=== PATIENT | male | born 2000 | race Two or more races ===

== ENCOUNTER 2024-01-24 07:41 | Emergency (ER) | payer MEDICAID, SELFPAY ==
[2024-01-24 07:49] VITALS: BP 136/89; PULSE 77; RESP 20; TEMP 36.8; O2SAT 98; BMI 38.4
--- NOTE | 2024-01-24 08:03 | XR_ITS ---
Examination: CT abdomen and pelvis without contrast. Coronal 3-D reconstructions. Sagittal 2-D reconstructions. Date and time of exam:January 24, 2024 0901 hours Comparison July 04, 2019 INDICATIONS: Bilateral flank pain and hematuria beginning this morning CTDI: vol (mGy): 17.4 DLP: (mGycm): 1277 Technique: Axial images of the abdomen have been obtained, 3 mm slice thickness Intravenous contrast material has not been administered. Low dose protocols were performed. One or more of the following dose reduction techniques were used; automated exposure control, adjustment of the mA and/or KV according to patient size, use of iterative reconstruction technique. Findings: No focal liver or splenic lesions No gallstones No pancreatic or adrenal mass Minimal right hydronephrosis secondary to 6 mm right ureteropelvic junction calculus Aorta normal size No bowel obstruction Normal appendix No diverticulitis No bladder calculi IMPRESSION: Minimal right hydronephrosis secondary to 6 mm right ureteropelvic junction calculus
[2024-01-24] MEDS: ONDANSETRON INJ 2 MG/ML INJ 2 ML 4 MG IV (08:24)
[2024-01-24] MEDS: KETOROLAC INJ 30 MG/ML VIAL IVP (08:24)
[2024-01-24] MEDS: SODIUM CHLORIDE 0.9% 1000 ML 1,000 ML 999 ML IV (08:25)
[2024-01-24 08:35] LABS: Basophils # (Auto) 0.1 Thou/mm3 (0.0-0.2); Basophils % (Auto) 1 % (0-2.5); Eosinophils # (Auto) 0.2 Thou/mm3 (0.0-0.5); Eosinophils % (Auto) 2 % (0-10); Hematocrit 41.1 % (41.0-53.0); Hemoglobin 15.1 g/dL (13.5-16.0); Immature Granulocytes % (Auto) 0 % (0-0); Immature Granulocytes Auto 0.01 Thou/mm3 (0.00-0.00); Lymphocytes # (Auto) 2.2 Thou/mm3 (1.0-4.8); Lymphocytes % (Auto) 29 % (10-50); Mean Corpuscular HGB Conc 36.7 g/dl (31.0-37.0); Mean Corpuscular Hemoglobin 30.1 pg (25.0-35.0); Mean Corpuscular Volume 82 fL (80-100); Monocytes % (Auto) 13 % (0-12); Neutrophils # (Auto) 4.1 Thou/mm3 (1.8-7.7); Neutrophils % (Auto) 55 % (37-80); Nucleated Red Blood Cell % 0 /100 WBC (0); Platelet Count 319 Thou/mm3 (140-440); RDW Standard Deviation 35.2 fL (35.1-43.9); Red Blood Count 5.02 Miln/mm3 (4.50-5.90); White Blood Count 7.6 Thou/mm3 (3.8-10.6)
[2024-01-24 08:55] LABS: Alanine Aminotransferase 16 U/L (10-49); Albumin, Serum 5.1 gm/dL (3.5-5.0); Albumin/Globulin Ratio 1.8 (1.2-2.2); Alkaline Phosphatase 67 U/L (46-116); Anion Gap 9 (7-16); Aspartate Amino Transferase 14 U/L (0-34); BUN/Creatinine Ratio 13 Ratio (12-20); Blood Urea Nitrogen 10 mg/dL (9-23); Calcium 9.9 mg/dL (8.3-10.6); Calcium (Corrected) 9.9 mg/dL (8.5-10.1); Carbon Dioxide 24.5 mMol/L (20.0-31.0); Chloride 103 mMol/L (98-107); Creatinine (Component) 0.8 mg/dL (0.6-1.3); Estimated Creatinine Clearance 185.1 mL/min (>60); Globulin 2.8 gm/dL (2.3-3.5); Glucose 100 mg/dL (74-106); Lipase 30 U/L (12-53); Osmolality,Calculated 270 (275-295); Potassium 3.9 mMol/L (3.4-5.1); Sodium 136 mMol/L (136-145); Total Protein 7.9 gm/dL (5.7-8.2); eGFR > 60 See Note
[2024-01-24 09:00] LABS: Collection Type, Urine Clean Catch; Squamous Epithelial Cell,Urine 0 /hpf (0-5)
--- NOTE | 2024-01-24 09:15 | PD.EDBACK ---
ED Back Injury Pain RME/HPI General Chief Complaint: Abdominal Pain Stated Complaint: mid abd. pain rad. to back,blood in urine Time Seen by Provider: 01/24/24 07:44 Arrival date/time: 01/24/24 07:41 RME / HPI RME / HPI Narrative: 23 year old male with history of kidney stones presents to the ED for complaint of back and abdominal pain beginning this morning. Reports his pain is located to both sides of his back that radiates around to both sides of his lower abdomen, described as aching pressure in sensation, rating as moderate-severe. Accompanied by vomiting x1 and blood tinged urine this morning. Denies fevers, chills, chest pain, cough, shortness of breath, diarrhea, constipation, or pain with urinating. Related Data Home Medications ?Medication ?Instructions ?Recorded ?Confirmed albuterol sulfate 90 mcg/actuation 2 puff inhalation QDAY 05/11/20 01/24/24 aerosol inhaler Previous Rx's ?Medication ?Instructions ?Recorded cyclobenzaprine 10 mg tablet 10 mg PO TID PRN muscle spasm #20 10/24/20 tabs ibuprofen 800 mg tablet 800 mg PO Q8H PRN pain #30 tabs 10/24/20 albuterol sulfate 90 mcg/actuation 2 puff inhalation Q6H PRN 05/03/23 aerosol inhaler (Ventolin HFA) shortness of breath or wheezing #8.5 grams Allergies Allergy/AdvReac Type Severity Reaction Status Date / Time No Known Allergies Allergy Verified 01/24/24 07:43 Review of Systems Review of Systems Narrative Review of Systems: Constitutional: DENIES; Fevers Eyes: DENIES; Loss of vision Head/Ear/Nose: DENIES; Loss of hearing Throat: DENIES; Dysphagia Cardiovascular: DENIES; Chest pain, dyspnea or syncope Respiratory: DENIES; Shortness of breath Gastrointestinal: SEE HPI +abd pain, vomiting x1 DENIES; Rectal bleeding or melena. Genitourinary: SEE HPI +blood tinged urine DENIES; Dysuria (painful or difficult urination) Musculoskeletal: SEE HPI +back pain DENIES; Arthralgia (pain in a joint),; Skin: DENIES; Rash Neurological: DENIES; Loss of function or movement Psychiatric: DENIES; recent major life stressor, emotional problem, illicit drug use or abuse Endocrinology: DENIES; Weight change Hematologic/Lymphatic: DENIES; Abnormal bruising Allergic/Immunologic: DENIES; Urticaria (hives) Past Medical History Past Medical History CARDIAC: Positive Hypercholesterolemia (STOP TAKING CHOLESTEROL AT 13 YRS OLD) RESPIRATORY: Positive Asthma (TAKES INHALER) GASTROINTESTINAL: Positive Gastrointestinal Disorders, Gastroesophageal Reflux Disease and Obesity MUSCULOSKELETAL: Positive Fractures (RIGHT FOOT HAD CAST) OTHER HISTORY: Positive Hospitalization (HOSP DUE TO FEVER AT [facility]) Family History FAMILY HISTORY: Positive Family Respiratory Disorders (FATHER (ASTHMA)) and Family Surgery (BROTHER,MOTHER) Social History SMOKING STATUS: Current some day smoker SUBSTANCE USE: does not use ED Exam Narrative Physical exam: Physical Exam: General: The vital signs were reviewed. The patient is non-toxic, in no apparent distress and appears healthy with a patent airway, no respiratory distress and has no apparent circulatory problems. Head & Scalp: Normocephalic, atraumatic. Face: Appears normal and is without lesions, deformity. Ears: Left external pinna appears normal. Right external pinna appears normal. Eyes: The sclera is anicteric. No obvious photophobia. The Left and Right Orbit/Lid/Conjunctiva appears normal without swelling, discoloration or injection. Nose: The nose is without deformity, discharge or tenderness; Throat: Appears normal. The mucous membranes are pink and moist without exudates, redness or mass seen. The tongue appears normal. Neck: The neck is supple and no apparent mass or adenopathy. Chest: The chest wall is normal in size and symmetry and has no chest wall tenderness or crepitus. The patient displays normal ventilator effort without retractions, accessory muscle use and has adequate air movement bilaterally with no wheezes and no rales. Cardiovascular: Regular rate and rhythm; No murmurs, rubs, or gallops; Gastrointestinal: The abdomen appears normal. No obvious hernias or mass. The abdomen vague bilateral lumbar discomfort with lower abdominal discomfort otherwise is soft and benign, non-distended, with no pain, no guarding and no rebound tenderness. Bowel sounds are present and normal sounding. No CVA tenderness. Genitourinary: Back/Spine: Extremities/Musculoskeletal/lymphatic: The bilateral upper and lower extremities are warm. There is no evidence of arterial insufficiency. There is no evidence of venous insufficiency/edema. The patient spontaneously moves bilateral upper and lower extremities with no pain and no limitation of movement. There is no apparent, injury or trauma. Skin: The skin is warm, dry and intact. No rashes. No petechia. No purpura. No abnormal bruising. The color is appropriate with no cyanosis. Mental status/Psychiatric: Mental status is appropriate for age. The patient has no apparent delusions, visual hallucinations, no apparent audible hallucinations. The patient has no apparent suicidal thoughts/ideation and no apparent homicidal thoughts/ideation. Neurological: The patient is awake, alert, interactive, cordial, cooperative and is oriented to name and situation. The patient follows commands and answers historical question with no impairment. There is no visual disturbance apparent. The pupils are equal and reactive bilaterally with normal eye movements and no diplopia The bilateral upper and lower extremities have normal strength, normal range of motion and normal functioning. The gait, station and balance appear to be baseline with no acute change Course Quality Measures none Orders Category Date Time Status Insert IV NOW Care 01/24/24 08:[address] abdomen pelvis wo con Stat Exams 01/24/24 08:03 Completed US abdomen limited Stat Exams 01/24/24 09:22 Completed CBC Stat Lab 01/24/24 08:21 Completed Comprehensive Metabolic Panel Stat Lab 01/24/24 08:21 Completed Lipase Stat Lab 01/24/24 08:21 Completed UA, C/S IF [Urinalysis, C/S if Indicated] Stat Lab 01/24/24 08:51 Completed Ketorolac Inj [Toradol Inj] Med 01/24/24 08:03 Discontinued 30 mg IVP X1 ONE Ondansetron Inj [Zofran Inj] Med 01/24/24 08:03 Discontinued 4 mg IV X1 ONE Sodium Chloride 0.9% 1000 ml [Ns] 1,000 ml Med 01/24/24 08:03 Discontinued IV 999 mls/hr Vital Signs Vital signs: Vital Signs Temperature 98.3 F 01/24/24 07:49 Pulse Rate 77 01/24/24 07:49 Respiratory Rate 20 01/24/24 07:49 Blood Pressure 136/89 H 01/24/24 07:49 Pulse Oximetry (%) 98 01/24/24 07:49 Oxygen Delivery Method Room Air 01/24/24 07:49 Pulse ox is 98% on room air which is adequate. Back Pain / Injury MDM Narrative MDM Narrative:: Linda Harrington am scribing for and in the presence of Dr. Smith. Patient presents with very vague bilateral lumbar discomfort and bilateral lower abdominal discomfort and does not describe any localizing symptoms here. Does have a history of previous kidney stone years ago. CT scan came back with a 6 mm right UV with some right mild hydronephrosis. Otherwise CT scan is unremarkable. Lab studies have a white count of 7.6 hemoglobin of 15.1 kidney function BUN 10 creatinine of 0.8 electrolytes are within normal limits transaminases are within normal limits. Lipase was 30 urinalysis had 47 red blood cells most likely secondary to the renal stone. Reevaluation 16 hours patient is very comfortable he knows to strain his urine and follow-up with his doctor return if getting worse. Patient data External records reviewed:: [facility] previous records (I reviewed ED visit on 05/31/2023) Clinical information provided by:: patient Social determinants that could affect healthcare access:: substance use (Marijuana ) Patient has the following chronic illnesses:: Kidney stone How is presenting disease/condition affected by chronic disease/condition?: uneffected by Evaluation data The following diagnostics were reviewed and interpreted by me:: lab results and radiology exam(s) Lab and/or radiology exams considered but not ordered:: None Interpretation Summary: Ordering Physician: Alyson KIRKLAND)Rudolph NP Date of Service: 01/24/24 Procedure(s): CT abdomen pelvis wo [facility] Accession Number(s): [id number] cc: Alyson KIRKLAND),Rudolph AMBROSE; Helio Glover MD; NO PRIMARY/FAMILY,PHYSICIAN~ Examination: CT abdomen and pelvis without contrast. Coronal 3-D reconstructions. Sagittal 2-D reconstructions. Date and time of exam:January 24, 2024 0901 hours Comparison July 04, 2019 INDICATIONS: Bilateral flank pain and hematuria beginning this morning CTDI: vol (mGy): 17.4 DLP: (mGycm): 1277 Technique: Axial images of the abdomen have been obtained, 3 mm slice thickness Intravenous contrast material has not been administered. Low dose protocols were performed. One or more of the following dose reduction techniques were used; automated exposure control, adjustment of the mA and/or KV according to patient size, use of iterative reconstruction technique. Findings: No focal liver or splenic lesions No gallstones No pancreatic or adrenal mass Minimal right hydronephrosis secondary to 6 mm right ureteropelvic junction calculus Aorta normal size No bowel obstruction Normal appendix No diverticulitis No bladder calculi IMPRESSION: Minimal right hydronephrosis secondary to 6 mm right ureteropelvic junction calculus Dictated By: Helio Glover MD Signed By: <Electronically signed by Helio Glover MD in OV> 01/24/24 0957 Ordering Physician: Buster Smith MD Date of Service: 01/24/24 Procedure(s): US abdomen limited Accession Number(s): [id number] cc: Buster Smith MD; Helio Glover MD; NO PRIMARY/FAMILY,PHYSICIAN~ Examination: Abdomen sonogram, Limited Date and time of exam: January 24, 2024 1137 hours INDICATIONS: Onset epigastric pain today Technique: Real-time mason scale transabdominal sonographic images of the upper abdomen obtained. Findings: Negative for gallstones Gallbladder wall 0.3 cm no edema Common bile duct 0.3 cm Pancreatic head 3.4 cm Liver 15.6 cm fatty infiltration no focal liver lesions Normal hepatopedal portal venous flow Patent IVC IMPRESSION: Normal gallbladder Normal common bile duct Fatty liver Dictated By: Helio Glover MD Signed By: <Electronically signed by Helio Glover MD in OV> 01/24/24 1234 Medications / Prescriptions Medications or Prescriptions considered but not ordered:: See above Medication administrations:: Medication Administration History Discontinued Medications Sodium Chloride (Ns) 1,000 mls @ 999 mls/hr IV .Q1H1M ONE Stop: 01/24/24 09:03 Last Infusion: 01/24/24 09:49 Dose: Infused Documented By: Admin: 01/24/24 08:25 Dose: 999 mls/hr Documented By: ZACARIAS Ketorolac Tromethamine (Ketorolac Inj 30 Mg/Ml Vial) 30 mg IVP X1 ONE Stop: 01/24/24 08:04 Last Admin: 01/24/24 08:24 Dose: 30 mg Documented By: ZACARIAS Ondansetron HCl (Ondansetron Inj 2 Mg/Ml Inj 2 Ml) 4 mg IV X1 ONE; Protocol Stop: 01/24/24 08:04 Last Admin: 01/24/24 08:24 Dose: 4 mg Documented By: ZACARIAS See above Consultations Consultation(s) initiated? (list below): No Diagnosis Differential diagnosis back pain/injury: renal colic, pyelonephritis and other (Kidney stone, cholelithiasis ) Most likely diagnosis given after review of the tests above:: Kidney stone Admission Indicated Admission indicated?: not indicated Admission Request Was there a request for admission?: No Disposition Plan Disposition Plan: Discharge Discharge Attestation Discharge Attestation: The patient and all family members were given an opportunity to ask questions and understood the discharge instructions. Discharge instructions specifically effects, indications for sooner follow up or return to the emergency department, and the expected course of current diagnosis. Patient condition: Stable Discharge Plan Plan Patient Disposition: HOME (Self Care) Prescriptions/Referrals Prescriptions/Med Rec: No Action cyclobenzaprine 10 mg tablet 10 mg PO TID PRN (Reason: muscle spasm) Qty: 20 0RF ibuprofen 800 mg tablet 800 mg PO Q8H PRN (Reason: pain) Qty: 30 0RF albuterol sulfate 90 mcg/actuation Hfa Aerosol Inhaler 2 puff INHALATION QDAY albuterol sulfate [Ventolin HFA] 90 mcg/actuation HFA aerosol inhaler 2 puff inhalation Q6H PRN (Reason: shortness of breath or wheezing) Qty: 8.5 0RF Referrals: No Primary/Family,Physician [Primary Care Provider] - In 1 week Problem List Clinical Impression: Calculus of distal right ureter, Hydronephrosis, right Patient/Caregiver Discharge Instructions Additional Instructions: Strain your urine as we discussed. Follow-up with your doctor in 2 days for recheck return if getting worse. You can use ibuprofen for pain. Make sure you are drinking plenty of clear liquids to prevent formation of further stones. If you are getting fever or increasing pain return for reevaluation Print Language: [place] Stand Alone Forms: [employer] Award Info., Patient Portal Info Letter
--- NOTE | 2024-01-24 09:22 | XR_ITS ---
Examination: Abdomen sonogram, Limited Date and time of exam: January 24, 2024 1137 hours INDICATIONS: Onset epigastric pain today Technique: Real-time mason scale transabdominal sonographic images of the upper abdomen obtained. Findings: Negative for gallstones Gallbladder wall 0.3 cm no edema Common bile duct 0.3 cm Pancreatic head 3.4 cm Liver 15.6 cm fatty infiltration no focal liver lesions Normal hepatopedal portal venous flow Patent IVC IMPRESSION: Normal gallbladder Normal common bile duct Fatty liver
[2024-01-24 09:34] LABS: Bacteria,Urine Rare; Bilirubin,Urine Negative (Negative); Blood,Urine 3+ (Negative); Clarity,Urine Clear (Clear/Hazy); Color,Urine Colorless (Lt Yel-Yel); Culture Indicated,Urine Not Indicated; Glucose, Urine Negative (Negative); Ketones,Urine Negative (Negative); Leukocyte Esterase,Urine Negative (Negative); Nitrite,Urine Negative (Negative); Protein,Urine Trace (Neg - Trace); RBC,Urine 47 /hpf (0-3); Specific Gravity,Urine 1.005 (1.001-1.035); Transitional Epi Cells,Urine < 1 /hpf (0-5); Urobilinogen,Urine Negative mg/dL (0.0-1.0); WBC,Urine 1 /hpf (0-5)
[2024-01-24 10:32] VITALS: BP 151/81; PULSE 68; RESP 18; TEMP 36.7; O2SAT 100
[2024-01-24 12:38] VITALS: BP 109/57; PULSE 60; RESP 16; TEMP 36.8; O2SAT 99
[2024-01-24 14:51] VITALS: BP 95/71; PULSE 60; RESP 18; TEMP 37.1; O2SAT 99
[2024-01-24 16:16] VITALS: BP 131/70; PULSE 65; RESP 18; TEMP 37.1; O2SAT 96
== END 2024-01-24 17:01 | disposition home or self-care (01) ==
PROVIDERS: Nurse Practitioner Primary Care; Emergency Provider Emergency Medicine
DX: N13.2 Hydronephrosis with renal and ureteral calculous obstruction (principal); K76.0 Fatty (change of) liver, not elsewhere classified
CPT/HCPCS: 36415; 74176; 76705; 80053; 81001; 83690; 85025; 96361; 96374; 96375; 99284; J1885; J2405; J7030

== ENCOUNTER 2024-01-25 06:32 | Emergency (ER) | payer MEDICAID, SELFPAY ==
[2024-01-25 06:33] VITALS: BMI 34.0
[2024-01-25 06:44] VITALS: BP 137/83; PULSE 70; RESP 19; TEMP 37.4; O2SAT 96
--- NOTE | 2024-01-25 07:02 | PD.EDRME ---
Rapid Medical Screening Exam RME Arrival date/time: 01/25/24 06:32 23-year-old male here with complaints of flank pain history of kidney stone. Denies take any meds prior to ED arrival. Chief Complaint: Abdominal Pain Time Seen by Provider: 01/25/24 06:35 Vital signs: Vital Signs Temperature 99.3 F 01/25/24 06:44 Pulse Rate 70 01/25/24 06:44 Respiratory Rate 19 01/25/24 06:44 Blood Pressure 137/83 H 01/25/24 06:44 Pulse Oximetry (%) 96 01/25/24 06:44 Oxygen Delivery Method Room Air 01/25/24 06:44 Vital signs reviewed by provider: Yes
[2024-01-25] MEDS: KETOROLAC INJ 30 MG/ML VIAL IVP (07:30)
[2024-01-25] MEDS: SODIUM CHLORIDE 0.9% 1000 ML 1,000 ML 999 ML IV (07:30)
[2024-01-25] MEDS: TAMSULOSIN HCL 0.4 MG CAPSULE PO (08:31)
--- NOTE | 2024-01-25 08:33 | PD.EDABDPN ---
ED Abdominal Pain RME/HPI General Chief Complaint: Abdominal Pain Stated complaint: RIGHT FLANK PAIN Time seen by provider: 01/25/24 06:35 Arrival date/time: 01/25/24 06:32 RME / HPI RME / HPI narrative: 01/25/24 06:32 23-year-old male here with complaints of flank pain history of kidney stone. Denies take any meds prior to ED arrival. DR. GUZMAN MAIN ED EVALUATION: 23 year old male with history of kidney stones returns to the ED for complaint of worsening back and abdominal pain that began yesterday. Reports his pain is located most to the right flank and right abdomen, described as pressure in sensation, rating as severe. Accompanied by vomiting blood tinged urine this morning. Denies fevers, chills, chest pain, cough, shortness of breath, diarrhea, constipation, or pain with urinating. Related Data Home Medications ?Medication ?Instructions ?Recorded ?Confirmed albuterol sulfate 90 mcg/actuation 2 puff inhalation QDAY 05/11/20 01/24/24 aerosol inhaler Previous Rx's ?Medication ?Instructions ?Recorded cyclobenzaprine 10 mg tablet 10 mg PO TID PRN muscle spasm #20 10/24/20 tabs ibuprofen 800 mg tablet 800 mg PO Q8H PRN pain #30 tabs 10/24/20 albuterol sulfate 90 mcg/actuation 2 puff inhalation Q6H PRN 05/03/23 aerosol inhaler (Ventolin HFA) shortness of breath or wheezing #8.5 grams Allergies Allergy/AdvReac Type Severity Reaction Status Date / Time No Known Allergies Allergy Verified 01/24/24 07:43 Review of Systems Review of Systems Narrative Review of Systems: Constitutional: DENIES; Fevers Eyes: DENIES; Loss of vision Head/Ear/Nose: DENIES; Loss of hearing Throat: DENIES; Dysphagia Cardiovascular: DENIES; Chest pain, dyspnea or syncope Respiratory: DENIES; Shortness of breath Gastrointestinal: SEE HPI +right flank pain, nausea, vomiting. DENIES; Rectal bleeding or melena. Genitourinary: SEE HPI +blood tinged urine. DENIES; Dysuria (painful or difficult urination) Musculoskeletal: DENIES; Arthralgia (pain in a joint),; Skin: DENIES; Rash Neurological: DENIES; Loss of function or movement Psychiatric: DENIES; recent major life stressor, emotional problem, illicit drug use or abuse Endocrinology: DENIES; Weight change Hematologic/Lymphatic: DENIES; Abnormal bruising Allergic/Immunologic: DENIES; Urticaria (hives) Past Medical History Past Medical History CARDIAC: Positive Hypercholesterolemia RESPIRATORY: Positive Asthma GASTROINTESTINAL: Positive Gastrointestinal Disorders, Gastroesophageal Reflux Disease and Obesity GENITOURINARY: Positive Kidney Stones MUSCULOSKELETAL: Positive Fractures OTHER HISTORY: Positive Hospitalization Family History FAMILY HISTORY: Positive Family Respiratory Disorders and Family Surgery Surgical History OTHER SURGICAL HX: BACK CYST REMOVED Social History SMOKING STATUS: Current every day smoker SUBSTANCE USE: does not use ED Exam Narrative Physical exam: Physical Exam: General: The vital signs were reviewed. On initial arrival patient is uncomfortable was seen upfront and sent to the back as a know this patient from yesterday has a 6 mm stone right UV junction otherwise the patient is non-toxic, in no apparent distress and appears healthy with a patent airway, no respiratory distress and has no apparent circulatory problems. Head & Scalp: Normocephalic, atraumatic. Face: Appears normal and is without lesions, deformity. Ears: Left external pinna appears normal. Right external pinna appears normal. Eyes: The sclera is anicteric. No obvious photophobia. The Left and Right Orbit/Lid/Conjunctiva appears normal without swelling, discoloration or injection. Nose: The nose is without deformity, discharge or tenderness; Throat: Appears normal. The mucous membranes are pink and moist without exudates, redness or mass seen. The tongue appears normal. Neck: The neck is supple and no apparent mass or adenopathy. Chest: The chest wall is normal in size and symmetry and has no chest wall tenderness or crepitus. The patient displays normal ventilator effort without retractions, accessory muscle use and has adequate air movement bilaterally with no wheezes and no rales. Cardiovascular: Regular rate and rhythm; No murmurs, rubs, or gallops; Gastrointestinal: The abdomen appears normal. No obvious hernias or mass. The abdomen is soft and benign, non-distended, with no pain, no guarding and no rebound tenderness. Bowel sounds are present and normal sounding. No CVA tenderness. Genitourinary: Back/Spine: Extremities/Musculoskeletal/lymphatic: The bilateral upper and lower extremities are warm. There is no evidence of arterial insufficiency. There is no evidence of venous insufficiency/edema. The patient spontaneously moves bilateral upper and lower extremities with no pain and no limitation of movement. There is no apparent, injury or trauma. Skin: The skin is warm, dry and intact. No rashes. No petechia. No purpura. No abnormal bruising. The color is appropriate with no cyanosis. Mental status/Psychiatric: Mental status is appropriate for age. The patient has no apparent delusions, visual hallucinations, no apparent audible hallucinations. The patient has no apparent suicidal thoughts/ideation and no apparent homicidal thoughts/ideation. Neurological: The patient is awake, alert, interactive, cordial, cooperative and is oriented to name and situation. The patient follows commands and answers historical question with no impairment. There is no visual disturbance apparent. The pupils are equal and reactive bilaterally with normal eye movements and no diplopia The bilateral upper and lower extremities have normal strength, normal range of motion and normal functioning. The gait, station and balance appear to be baseline with no acute change Course Quality Measures none Orders Category Date Time Status Insert IV NOW Care 01/25/24 07:01 Completed Ketorolac Inj [Toradol Inj] Med 01/25/24 07:01 Discontinued 30 mg IVP X1 ONE Sodium Chloride 0.9% 1000 ml [Ns] 1,000 ml Med 01/25/24 07:02 Discontinued IV 999 mls/hr Tamsulosin HCl [Flomax] Med 01/25/24 07:01 Discontinued 0.4 mg PO X1 ONE Vital Signs Vital signs: Vital Signs Temperature 99.3 F 01/25/24 06:44 Pulse Rate 70 01/25/24 06:44 Respiratory Rate 19 01/25/24 06:44 Blood Pressure 137/83 H 01/25/24 06:44 Pulse Oximetry (%) 96 01/25/24 06:44 Oxygen Delivery Method Room Air 01/25/24 06:44 Pulse ox is 96% on room air which is adequate. Abdominal Pain MDM MDM Narrative MDM Narrative:: Patient returns after he was diagnosed with a 6 mm UVJ stone yesterday as he was having some nausea vomiting and increased pain. He got some medicines we put him in room 8 and we observed him and at 1310 hrs. he is very comfortable smiling walking around has no pain he states he urinated clear on this last urine collection the first 1 was a reddish consistent with hematuria Patient states he felt a funny feeling when he urinated last time he may have passed a stone unfortunately did not strain it here. He is pain-free comfortable ready go home advised to continue strain his urine for couple days return to getting worse. He knows follow-up with the regular doctor if he collects anything so they could do analysis. There is no need to do repeat labs or then because yesterday the diagnosis was cleared he is a young gentleman with no other health problems at this time Patient data External records reviewed:: [facility] previous records (I reviewed ED visit from yesterday ) Clinical information provided by:: patient Social determinants that could affect healthcare access:: substance use (Marijuana ) Patient has the following chronic illnesses:: Kidney stone How is presenting disease/condition affected by chronic disease/condition?: exacerbated by Evaluation data The following diagnostics were reviewed and interpreted by me:: other (specify) (None ) Lab and/or radiology exams considered but not ordered:: None Interpretation Summary: As noted above Medications / Prescriptions Medications or Prescriptions considered but not ordered:: None Medication administrations:: Medication Administration History Discontinued Medications Sodium Chloride (Ns) 1,000 mls @ 999 mls/hr IV .Q1H1M ONE Stop: 01/25/24 08:02 Last Infusion: 01/25/24 08:32 Dose: Infused Documented By: Admin: 01/25/24 07:30 Dose: 999 mls/hr Documented By: ADRIEL Ketorolac Tromethamine (Ketorolac Inj 30 Mg/Ml Vial) 30 mg IVP X1 ONE Stop: 01/25/24 07:02 Last Admin: 01/25/24 07:30 Dose: 30 mg Documented By: ADRIEL Tamsulosin HCl (Tamsulosin Hcl 0.4 Mg Capsule) 0.4 mg PO X1 ONE Stop: 01/25/24 07:02 Last Admin: 01/25/24 08:31 Dose: 0.4 mg Documented By: ADRIEL See above Consultations Consultation(s) initiated? (list below): No Diagnosis Differential diagnosis abdominal pain: abdominal pain, calculus of kidney and other (Pyelonephritis) Most likely diagnosis given after review of the tests above:: right distal ureteral calculus Hematuria Admission Indicated Admission indicated?: not indicated Admission Request Was there a request for admission?: No Disposition Plan Disposition Plan: Discharge Discharge Attestation Discharge Attestation: The patient and all family members were given an opportunity to ask questions and understood the discharge instructions. Discharge instructions specifically effects, indications for sooner follow up or return to the emergency department, and the expected course of current diagnosis. Patient condition: Stable Discharge Plan Plan Patient Disposition: HOME (Self Care) Prescriptions/Referrals Prescriptions/Med Rec: No Action cyclobenzaprine 10 mg tablet 10 mg PO TID PRN (Reason: muscle spasm) Qty: 20 0RF ibuprofen 800 mg tablet 800 mg PO Q8H PRN (Reason: pain) Qty: 30 0RF albuterol sulfate 90 mcg/actuation Hfa Aerosol Inhaler 2 puff INHALATION QDAY albuterol sulfate [Ventolin HFA] 90 mcg/actuation HFA aerosol inhaler 2 puff inhalation Q6H PRN (Reason: shortness of breath or wheezing) Qty: 8.5 0RF Referrals: Lam Brewer MD [Primary Care Provider] - In 1 week Problem List Clinical Impression: Right distal ureteral calculus, Hematuria Patient/Caregiver Discharge Instructions Education Materials: ED Kidney Stone w/ Colic Additional Instructions: As we discussed continue drinking plenty of fluids. Strain your urine and see if you collect the stone. If you do take it your doctor and they can send it for analysis. Return if getting worse in any way as we discussed. Print Language: Polish Stand Alone Forms: Marina Award Info., Patient Portal Info Letter
[2024-01-25 08:34] VITALS: BP 131/57; PULSE 64; RESP 18; TEMP 36.9; O2SAT 96
[2024-01-25 12:35] VITALS: BP 162/90; PULSE 74; RESP 17; TEMP 36.8; O2SAT 97
== END 2024-01-25 13:50 | disposition home or self-care (01) ==
PROVIDERS: Emergency Provider Emergency Medicine; PCP Family Medicine
DX: N20.1 Calculus of ureter (principal)
CPT/HCPCS: 96361; 96374; 99284; J1885; J7030; A9270

== ENCOUNTER 2024-02-22 05:54 | Emergency (ER) | payer SELFPAY ==
[2024-02-22 06:00] VITALS: BP 153/101; PULSE 72; RESP 18; TEMP 37; O2SAT 96; BMI 36.9
[2024-02-22] MEDS: ONDANSETRON ODT 4 MG TABRAP PO (06:32)
[2024-02-22] MEDS: KETOROLAC INJ 60 MG/2 ML VIAL IM (06:32)
[2024-02-22] MEDS: TAMSULOSIN HCL 0.4 MG CAPSULE PO (06:32)
--- NOTE | 2024-02-22 06:47 | EDNOTE_ITS ---
<Statement entered by Luana Mooney MD - 02/22/24 07:38> As co-signing physician, I was present and available for consult prn. I concur with the plan and care as documented by the midlevel provider. ED Abdominal Pain RME/HPI General Chief Complaint: Abdominal Pain Stated complaint: RIGHT FLANK PAIN Time seen by provider: 02/22/24 06:06 Arrival date/time: 02/22/24 05:54 This is a 23 year old male with history of kidney stones returns to the ED for complaint of worsening back and abdominal pain that began this AM about one hour ago. Reports his pain is located most to the right flank described as pressure in sensation, rating as severe. +hx hematuria this am. Patient is requesting pain medication and is refusing any labs or imaging. Denies fevers, chills, chest pain, cough, shortness of breath, diarrhea, constipation, or pain with urinating. Source: patient Limitations: no limitations Related Data Home Medications ?Medication ?Instructions ?Recorded ?Confirmed albuterol sulfate 90 mcg/actuation 2 puff inhalation QDAY 05/11/20 01/24/24 aerosol inhaler Previous Rx's ?Medication ?Instructions ?Recorded cyclobenzaprine 10 mg tablet 10 mg PO TID PRN muscle spasm #20 10/24/20 tabs ibuprofen 800 mg tablet 800 mg PO Q8H PRN pain #30 tabs 10/24/20 albuterol sulfate 90 mcg/actuation 2 puff inhalation Q6H PRN 05/03/23 aerosol inhaler (Ventolin HFA) shortness of breath or wheezing #8.5 grams ibuprofen 800 mg tablet (IBU) 800 mg PO Q8H #20 tabs 02/22/24 ondansetron HCl 8 mg tablet 8 mg PO Q8H 48 hours #6 tabs 02/22/24 tamsulosin 0.4 mg capsule (Flomax) 0.4 mg PO QDAY 5 days #5 caps 02/22/24 Allergies Allergy/AdvReac Type Severity Reaction Status Date / Time No Known Allergies Allergy Verified 01/24/24 07:43 Review of Systems Review of Systems Systems Reviewed: All systems reviewed, normal except as documented Narrative Review of Systems: Constitutional: DENIES; Fevers Eyes: DENIES; Loss of vision Head/Ear/Nose: DENIES; Loss of hearing Throat: DENIES; Dysphagia Cardiovascular: DENIES; Chest pain, dyspnea or syncope Respiratory: DENIES; Shortness of breath Gastrointestinal: SEE HPI +right flank pain, nausea, vomiting. DENIES; Rectal bleeding or melena. Genitourinary: DENIES; Dysuria (painful or difficult urination) Musculoskeletal: DENIES; Arthralgia (pain in a joint),; Skin: DENIES; Rash Neurological: DENIES; Loss of function or movement Psychiatric: DENIES; recent major life stressor, emotional problem, illicit drug use or abuse Endocrinology: DENIES; Weight change Hematologic/Lymphatic: DENIES; Abnormal bruising Allergic/Immunologic: DENIES; Urticaria (hives) Past Medical History Past Medical History NEUROLOGIC: Negative Neurological Disorders or Seizures CARDIAC: Positive Hypercholesterolemia; Negative Cardiac Disorders or Congestive Heart Failure RESPIRATORY: Positive Asthma; Negative Chronic Obstructive Pulmonary Disease (COPD) GASTROINTESTINAL: Positive Gastrointestinal Disorders, Gastroesophageal Reflux Disease and Obesity; Negative Hepatitis GENITOURINARY: Positive Kidney Stones; Negative Genitourinary Disorders or Renal Disease MUSCULOSKELETAL: Positive Fractures; Negative Musculoskeletal Disorders ENDOCRINE: Negative Endocrine Disorders, Diabetes Mellitus Type 1 or Diabetes Mellitus Type 2 HEMATOLOGIC: Negative Blood Disorders, Leukemia or Sickle Cell Disease OTHER HISTORY: Positive Hospitalization; Negative Autoimmune Disease, Shingles, Falls, Blood Transfusions, Blood Transfusion Reaction, Anesthesia Reactions, Chemotherapy, Radiation Therapy, Chicken Pox, Measles, Mumps or Cancer Family History FAMILY HISTORY: Positive Family Respiratory Disorders and Family Surgery; Negative Family Psychiatric Problems, Family Cardiac Disorders, Family Gastrointestinal Problems, Family Cancer or Family Anesthesia Reaction Social History SMOKING STATUS: Never smoker SUBSTANCE USE: does not use ED Exam Narrative Physical exam: 23-year-old male awake and alert does not appear to be in severe distress General Limitations: Present no limitations General appearance: Present alert and in no apparent distress Head Head exam: Present atraumatic Eye Eye exam: Present normal appearance, PERRL and EOMI ENT ENT exam: Present normal exam, normal oropharynx and mucous membranes moist Neck Neck exam: Present normal inspection, full ROM and trachea midline Chest Chest inspection: Present normal inspection and symmetric chest wall rise Respiratory Respiratory exam: Present normal lung sounds bilaterally Cardiovascular Cardiovascular exam: Present regular rate, normal rhythm and normal heart sounds Abdominal Exam Abdominal exam: Present soft and normal bowel sounds Extremities Exam Extremities exam: Present normal inspection and full ROM Back Exam Back exam: Present normal inspection and full ROM Neurological Exam Neurological exam: Present alert, oriented X3 and CN II-XII intact Psychiatric Psychiatric exam: Present normal affect and normal mood Skin Skin exam: Present warm, dry, intact and normal color Course Quality Measures none Orders Category Date Time Status Urinalysis Stat Lab 02/22/24 06:49 Received Ketorolac Inj [Toradol Inj] Med 02/22/24 06:20 Discontinued 60 mg IM X1 ONE Ondansetron Odt [Zofran Odt] Med 02/22/24 06:20 Discontinued 4 mg PO X1 ONE Tamsulosin HCl [Flomax] Med 02/22/24 06:21 Discontinued 0.4 mg PO X1 ONE Vital Signs Vital signs: Vital Signs Temperature 98.6 F 02/22/24 06:00 Pulse Rate 72 02/22/24 06:00 Respiratory Rate 18 02/22/24 06:00 Blood Pressure 153/101 H 02/22/24 06:00 Pulse Oximetry (%) 96 02/22/24 06:00 Oxygen Delivery Method Room Air 02/22/24 06:00 Abdominal Pain MDM MDM Narrative MDM Narrative:: 23-year-old male with known history of renal lithiasis presents to the emergency department with complaints of hematuria nausea and flank pain. Based on his previous history he has had a 6 mm stone. Reports he has followed up with his clinic however has not seen urology. Today I offered the patient to repeat his labs CT UA however patient states he would like to only have pain medication and nausea medication and would like to go home without full workup. Patient is afebrile not vomiting at time pain 4 out of 10. He does report he is passing urine fine. Patient was given Toradol, Flomax and nausea medication. I did withhold all the labs and imaging at this time I strictly advised patient I will send him some nausea medication and pain medication. Advised that if he does not improve or worsens to return to the emergency department for further evaluation. Strictly advised to obtain a referral for urology with his PCP Patient data External records reviewed:: [facility] previous records Clinical information provided by:: patient Social determinants that could affect healthcare access:: none Patient has the following chronic illnesses:: Renal lithiasis How is presenting disease/condition affected by chronic disease/condition?: exacerbated by Evaluation data The following diagnostics were reviewed and interpreted by me:: lab results, radiology exam(s) and EKG tracing(s) Lab and/or radiology exams considered but not ordered:: I considered labs, CT without contrast, urinalysis, however patient refused these modalities. Interpretation Summary: Not applicable Medications / Prescriptions Medications or Prescriptions considered but not ordered:: no Medication administrations:: Medication Administration History Discontinued Medications Ketorolac Tromethamine (Ketorolac Inj 60 Mg/2 Ml Vial) 60 mg IM X1 ONE Stop: 02/22/24 06:21 Last Admin: 02/22/24 06:32 Dose: 60 mg Documented By: JESUS Ondansetron HCl (Ondansetron Odt 4 Mg Tabrap) 4 mg PO X1 ONE; Protocol Stop: 02/22/24 06:21 Last Admin: 02/22/24 06:32 Dose: 4 mg Documented By: JSEUS Tamsulosin HCl (Tamsulosin Hcl 0.4 Mg Capsule) 0.4 mg PO X1 ONE Stop: 02/22/24 06:22 Last Admin: 02/22/24 06:32 Dose: 0.4 mg Documented By: JESUS All medications administered and effective Consultations Consultation(s) initiated? (list below): No Diagnosis Differential diagnosis abdominal pain: abdominal pain, calculus of kidney, constipation, diverticulitis, gastroenteritis, pancreatitis and small bowel obstruction Most likely diagnosis given after review of the tests above:: Most likely renal calculus pain Admission Indicated Admission indicated?: not indicated Admission Request Was there a request for admission?: No Disposition Plan Disposition Plan: Discharge Discharge Attestation Discharge Attestation: The patient and all family members were given an opportunity to ask questions and understood the discharge instructions. Discharge instructions specifically effects, indications for sooner follow up or return to the emergency department, and the expected course of current diagnosis. Patient condition: Stable Discharge Plan Plan Patient Disposition: HOME (Self Care) Patient condition on transfer: Stable Prescriptions/Referrals Prescriptions/Med Rec: New ondansetron HCl 8 mg tablet 8 mg PO Q8H 2 Days Qty: 6 0RF Rx Instructions: give 1st dose 30min before emetogenic chemo tamsulosin [Flomax] 0.4 mg capsule 0.4 mg PO QDAY 5 Days Qty: 5 0RF ibuprofen [IBU] 800 mg tablet 800 mg PO Q8H Qty: 20 0RF No Action cyclobenzaprine 10 mg tablet 10 mg PO TID PRN (Reason: muscle spasm) Qty: 20 0RF ibuprofen 800 mg tablet 800 mg PO Q8H PRN (Reason: pain) Qty: 30 0RF albuterol sulfate 90 mcg/actuation Hfa Aerosol Inhaler 2 puff INHALATION QDAY albuterol sulfate [Ventolin HFA] 90 mcg/actuation HFA aerosol inhaler 2 puff inhalation Q6H PRN (Reason: shortness of breath or wheezing) Qty: 8.5 0RF Problem List Clinical Impression: Renal colic, Hematuria Patient/Caregiver Discharge Instructions Discharge Activity: activity as tolerated Education Materials: ED Hematuria, ED Kidney Stone w/ Colic Additional Instructions: Today you were evaluated for flank pain and blood in your urine. Based on your history most likely is due to your kidney stones. You did refuse labs and imaging and we only treated you for your pain. It is very important that you follow-up with your primary doctor, so you can obtain a urology referral. Please increase water intake As discussed I did provide you with medication prescription to help you with your pain if you have no improvement and would like to return to the emergency department for further workup and evaluation we are glad to have you back and evaluate you. Print Language: Arabic Stand Alone Forms: Marina Award Info., Patient Portal Info Letter PA/TECHNICAL SALES ASSOCIATE Supervising Physician PA/TECHNICAL SALES ASSOCIATE Supervising Physician: Dr. Helm
[2024-02-22 06:52] LABS: Collection Type, Urine Clean Catch
--- NOTE | 2024-02-22 07:00 | PC.NURSE ---
pt refused labs and imagining per provider notes
[2024-02-22 07:30] LABS: Bacteria,Urine Rare; Bilirubin,Urine Negative (Negative); Blood,Urine 3+ (Negative); Glucose, Urine Negative (Negative); Ketones,Urine Negative (Negative); Leukocyte Esterase,Urine Negative (Negative); Nitrite,Urine Negative (Negative); Protein,Urine 2+ (Neg - Trace); RBC,Urine 3 /hpf (0-3); Specific Gravity,Urine 1.022 (1.001-1.035); Squamous Epithelial Cell,Urine < 1 /hpf (0-5); Urobilinogen,Urine Negative mg/dL (0.0-1.0); WBC,Urine 5 /hpf (0-5)
[2024-02-22 08:09] LABS: Clarity,Urine Hazy (Clear/Hazy); Color,Urine Lt Yellow (Lt Yel-Yel)
== END 2024-02-22 07:11 | disposition home or self-care (01) ==
PROVIDERS: Nurse Practitioner Primary Care; Emergency Provider Emergency Medicine
DX: N23 Unspecified renal colic (principal); R31.9 Hematuria, unspecified
CPT/HCPCS: 81001; 96372; 99283; J1885; Q0162; A9270

== ENCOUNTER 2024-04-08 04:21 | Emergency (ER) | payer MEDICAID, SELFPAY ==
[2024-04-08 04:22] VITALS: BMI 39.9
[2024-04-08 04:29] VITALS: BP 145/84; PULSE 81; RESP 18; TEMP 37.3; O2SAT 96
--- NOTE | 2024-04-08 04:46 | XR_ITS ---
Examination: CT abdomen and pelvis without contrast. Coronal 3-D reconstructions. Sagittal 2-D reconstructions. Date and time of exam:April 08, 2024 at 0458 hrs. Indications: Onset right flank pain today CTDI: vol (mGy): 14.6 DLP: (mGycm): 1059 Technique: Axial images of the abdomen have been obtained, 3 mm slice thickness Intravenous contrast material has not been administered. Low dose protocols were performed. One or more of the following dose reduction techniques were used; automated exposure control, adjustment of the mA and/or KV according to patient size, use of iterative reconstruction technique. Findings: No focal liver or splenic lesions No gallstones No pancreatic or adrenal mass Mild right hydronephrosis secondary to 7 mm mid right ureteral calculus Normal appendix No bowel obstruction Contracted urinary bladder The osseous structures are intact Impression: Mild right hydronephrosis secondary to 7 mm mid right ureteral calculus
--- NOTE | 2024-04-08 04:48 | PD.EDRME ---
Rapid Medical Screening Exam RME Arrival date/time: 04/08/24 04:21 23-year-old male past medical history of kidney stones presents emergency department complaining of right flank pain with nausea. Chief Complaint: Back Pain/Injury Time Seen by Provider: 04/08/24 04:46 Vital signs: Vital Signs Temperature 99.2 F 04/08/24 04:29 Pulse Rate 81 04/08/24 04:29 Respiratory Rate 18 04/08/24 04:29 Blood Pressure 145/84 H 04/08/24 04:29 Pulse Oximetry (%) 96 04/08/24 04:29 Oxygen Delivery Method Room Air 04/08/24 04:29 Vital signs reviewed by provider: Yes
[2024-04-08 05:17] LABS: Basophils # (Auto) 0.1 Thou/mm3 (0.0-0.2); Basophils % (Auto) 1 % (0-2.5); Eosinophils # (Auto) 0.2 Thou/mm3 (0.0-0.5); Eosinophils % (Auto) 1 % (0-10); Hematocrit 41.9 % (41.0-53.0); Hemoglobin 14.9 g/dL (13.5-16.0); Immature Granulocytes % (Auto) 0 % (0-0); Immature Granulocytes Auto 0.07 Thou/mm3 (0.00-0.00); Lymphocytes # (Auto) 2.6 Thou/mm3 (1.0-4.8); Lymphocytes % (Auto) 16 % (10-50); Mean Corpuscular HGB Conc 35.6 g/dl (31.0-37.0); Mean Corpuscular Volume 85 fL (80-100); Monocytes # (Auto) 1.4 Thou/mm3 (0.0-0.8); Monocytes % (Auto) 8 % (0-12); Neutrophils # (Auto) 12.5 Thou/mm3 (1.8-7.7); Neutrophils % (Auto) 74 % (37-80); Nucleated Red Blood Cell % 0 /100 WBC (0); Platelet Count 345 Thou/mm3 (140-440); RDW Standard Deviation 38.3 fL (35.1-43.9); Red Blood Count 4.96 Miln/mm3 (4.50-5.90); White Blood Count 16.8 Thou/mm3 (3.8-10.6)
[2024-04-08] MEDS: KETOROLAC INJ 60 MG/2 ML VIAL 30 MG IM (05:26)
[2024-04-08 05:37] LABS: Alanine Aminotransferase 14 U/L (10-49); Albumin, Serum 4.4 gm/dL (3.5-5.0); Albumin/Globulin Ratio 1.6 (1.2-2.2); Alkaline Phosphatase 76 U/L (46-116); Anion Gap 10 (7-16); Aspartate Amino Transferase 13 U/L (0-34); BUN/Creatinine Ratio 14 Ratio (12-20); Bilirubin,Total 0.7 mg/dL (0.3-1.2); Blood Urea Nitrogen 11 mg/dL (9-23); Calcium 9.5 mg/dL (8.3-10.6); Calcium (Corrected) 9.5 mg/dL (8.5-10.1); Carbon Dioxide 24.5 mMol/L (20.0-31.0); Chloride 108 mMol/L (98-107); Creatinine (Component) 0.8 mg/dL (0.6-1.3); Estimated Creatinine Clearance 188.8 mL/min (>60); Globulin 2.8 gm/dL (2.3-3.5); Glucose 106 mg/dL (74-106); Lipase 34 U/L (12-53); Osmolality,Calculated 282 (275-295); Sodium 142 mMol/L (136-145); Total Protein 7.2 gm/dL (5.7-8.2); eGFR > 60 See Note
--- NOTE | 2024-04-08 05:53 | PRELIM_ITS ---
CT scan of the abdomen and pelvis without intravenous contrast (axial sections with sagittal and coronal reformats). April 08, 2024 0458 hours Clinical History: Right flank pain. Comparison: No prior study is available for comparison. Findings: The unenhanced liver, gallbladder, spleen, pancreas, adrenals and left kidney are unremarkable. There is a 6.7 mm obstructing mid right ureteral calculus with mild right hydroureteronephrosis. Urinary bladder only contains a trace amount of fluid and is not adequately distended. There is underdistention of the stomach as well as large bowel which limits evaluation. The appendix is normal.There is no free intraperitoneal air or fluid. There is no abdominal or pelvic lymphadenopathy. There is minimal subsegmental atelectasis within the lung bases. There is no acute osseous abnormality. Impression: A 6.7 mm obstructing mid right ureteral calculus with mild right hydroureteronephrosis. Report Electronically Signed By: Chano Haddad 04/08/2024 5:53:07 AM [EST]
[2024-04-08] MEDS: ONDANSETRON ODT 4 MG TABRAP PO (06:23)
[2024-04-08] MEDS: SODIUM CHLORIDE 0.9% 1000 ML 1,000 ML 125 ML IV (06:23)
[2024-04-08] MEDS: MORPHINE SULF INJ 10 MG/ML VIAL 4 MG IVP ×2 (06:24→07:25)
[2024-04-08 06:25] VITALS: BP 127/69; PULSE 86; RESP 16; TEMP 36.9; O2SAT 97
--- NOTE | 2024-04-08 07:03 | EDNOTE_ITS ---
ED Back Injury Pain RME/HPI General Chief Complaint: Back Pain/Injury Stated Complaint: RIGHT KIDNEY PAIN Time Seen by Provider: 04/08/24 04:46 Arrival date/time: 04/08/24 04:21 RME / HPI RME / HPI Narrative: 04/08/24 04:21 23-year-old male past medical history of kidney stones presents emergency department complaining of right flank pain with nausea. DR. ALVES MAIN ED EVALUATION: 23 year old male presents to the ED for evaluation of right flank pain beginning last night. Described as pressure in sensation, rating as severe. Accompanied by nausea, vomiting, and blood tinged urine. Patient reports history of kidney stones with a total of 2 attacks; first attack beginning 01/2024 lasting through 02/2024. States he was evaluated here 02/2024 where he was sent home with medications and pain had completely resolved. States he followed up with PCP at [facility] and was provided a phone number for urologist Dr. Sam which she states does not work and has been unable to consult with urology. Pain today similar to previous kidney stone pain. Denies fevers, chills, chest pain, cough, diarrhea, constipation, or difficulty urinating. Related Data Home Medications ?Medication ?Instructions ?Recorded ?Confirmed albuterol sulfate 90 mcg/actuation 2 puff inhalation Q DAY 05/11/20 01/24/24 aerosol inhaler Previous Rx's ?Medication ?Instructions ?Recorded cyclobenzaprine 10 mg tablet 10 mg PO TID PRN muscle s pasm #20 10/24/20 tabs ibuprofen 800 mg tablet 800 mg PO Q8H PRN pain #30 t abs 10/24/20 albuterol sulfate 90 mcg/actuation 2 puff inhalation Q 6H PRN 05/03/23 aerosol inhaler (Ventolin HFA) shortness of breath or wheezing #8.5 grams ibuprofen 800 mg tablet (IBU) 800 mg PO Q8H #20 tabs 0 02/22/24 tamsulosin 0.4 mg capsule (Flomax) 0.4 mg PO QDAY #7 c aps 04/08/24 Allergies Allergy/AdvReac Type Severity Reaction Status Date / Time No Known Allergies Allergy Verified 01/24/24 07:43 Review of Systems Review of Systems Narrative Review of Systems: Gen: No fever, no chills, no weight loss EYES: No discharge, no visual changes, no pain HEENT: No ear pain, no congestion, no sore throat PULM: no shortness of breath, no cough, no congestion CV: No chest pain, no palpitations, no chest tightness GI: + nausea, + vomiting, no diarrhea, + pain, no constipation : +blood tinged urine. No frequency, no urgency,? no dysuria Musc/skel: No joint pain, +right flank/back pain Skin: No rash, no ecchymosis, no lesions Neuro: No weakness, no headache Past Medical History Past Medical History CARDIAC: Positive Hypercholesterolemia RESPIRATORY: Positive Asthma GASTROINTESTINAL: Positive Gastrointestinal Disorders, Gastroesophageal Reflux Disease and Obesity GENITOURINARY: Positive Kidney Stones MUSCULOSKELETAL: Positive Fractures OTHER HISTORY: Positive Hospitalization Family History FAMILY HISTORY: Positive Family Respiratory Disorders and Family Surgery Social History SMOKING STATUS: Never smoker SUBSTANCE USE: does not use ED Exam Narrative Physical exam: Physical exam performed after patient received pain medications. GENERAL APPEARANCE: AxOx4, no obvious distress, nontoxic appearing HEENT: NC, AT. MMM. EOMI, clear conjunctiva, oropharynx clear. NECK: Supple without lymphadenopathy. No stiffness or restricted ROM. HEART: Normal rate and regular rhythm, normal S1/S1, no m/r/g LUNGS: CTAB, moving air well. No crackles or wheezes are heard. ABDOMEN: Soft, nontender, nondistended with good bowel sounds heard. BACK: No midline C/T/L spine pain or deformity, No CVAT, no obvious deformity. EXTREMITIES: Without cyanosis, clubbing or edema. MUSCULOSKELETAL: FROM of all major joints, no chest tenderness NEUROLOGICAL: Grossly nonfocal. Alert and oriented, moving all 4 extremities. CN not formally tested but appear grossly intact. Skin: Warm and dry without any rash. Course Quality Measures none Orders Category Date Time Status Insert IV NOW Care 04/08/24 05:[address] abdomen pelvis wo con Stat Exams 04/08/24 04:46 Taken CBC Stat Lab 04/08/24 04:57 Completed CMP [Comprehensive Metabolic Panel] Stat Lab 04/08/24 04:57 Completed Lipase Stat Lab 04/08/24 04:57 Completed Urinalysis, C/S if Indicated Stat Lab 04/08/24 04:46 Ordered Ketorolac Inj [Toradol Inj] Med 04/08/24 04:46 Discontinued 30 mg IM X1 ONE Morphine Inj Med 04/08/24 05:43 Discontinued 4 mg IVP X1 ONE Ondansetron Odt [Zofran Odt] Med 04/08/24 05:43 Discontinued 4 mg PO X1 ONE Sodium Chloride 0.9% 1000 ml [Ns] 1,000 ml Med 04/08/24 05:44 Active IV 125 mls/hr Reevaluation(s) Reevaluation #1: We reviewed all the results, analysis, and treatment plans. Patient is amenable to discharge. Strict return precautions were outlined. Patient was discharged in stable condition. Time: 07:05 Vital Signs Vital signs: Vital Signs Temperature 99.2 F 04/08/24 04:29 Pulse Rate 81 04/08/24 04:29 Respiratory Rate 18 04/08/24 04:29 Blood Pressure 145/84 H 04/08/24 04:29 Pulse Oximetry (%) 96 04/08/24 04:29 Oxygen Delivery Method Room Air 04/08/24 04:29 Pulse ox is 96% on room air which is adequate. Back Pain / Injury MDM Narrative MDM Narrative:: Linda Harrintgon am scribing for and in the presence of Dr. Alves. Patient data External records reviewed:: [facility] previous records (I reviewed ED visit on 02/22/2024 ) Clinical information provided by:: patient Social determinants that could affect healthcare access:: none Patient has the following chronic illnesses:: Kidney stones, first diagnosed 01/2025 How is presenting disease/condition affected by chronic disease/condition?: exacerbated by Evaluation data The following diagnostics were reviewed and interpreted by me:: lab results and radiology exam(s) Lab and/or radiology exams considered but not ordered:: None Interpretation Summary: Ordering Physician: Date of Service: Procedure(s): Accession Number(s): cc: ~ CT scan of the abdomen and pelvis without intravenous contrast (axial sections with sagittal and coronal reformats). April 08, 2024 0458 hours Clinical History: Right flank pain. Comparison: No prior study is available for comparison. Findings: The unenhanced liver, gallbladder, spleen, pancreas, adrenals and left kidney are unremarkable. There is a 6.7 mm obstructing mid right ureteral calculus with mild right hydroureteronephrosis. Urinary bladder only contains a trace amount of fluid and is not adequately distended. There is underdistention of the stomach as well as large bowel which limits evaluation. The appendix is normal.There is no free intraperitoneal air or fluid. There is no abdominal or pelvic lymphadenopathy. There is minimal subsegmental atelectasis within the lung bases. There is no acute osseous abnormality. Impression: A 6.7 mm obstructing mid right ureteral calculus with mild right hydroureterone phrosis. Report Electronically Signed By: Chano Haddad 04/08/2024 5:53:07 AM [EST] Medications / Prescriptions Medications or Prescriptions considered but not ordered:: None Medication administrations:: Medication Administration History Sodium Chloride (Ns) 1,000 mls @ 125 mls/hr IV .Q8H ONE Stop: 04/08/24 13:43 Last Admin: 04/08/24 06:23 Dose: 125 mls/hr Documented By: EF Discontinued Medications Ketorolac Tromethamine (Ketorolac Inj 60 Mg/2 Ml Vial) 30 mg IM X1 ONE Stop: 04/08/24 04:47 Last Admin: 04/08/24 05:26 Dose: 30 mg Documented By: TC Morphine Sulfate (Morphine Sulf Inj 10 Mg/Ml Vial) 4 mg IVP X1 ONE Stop: 04/08/24 05:44 Last Admin: 04/08/24 06:24 Dose: 4 mg Documented By: EF Ondansetron HCl (Ondansetron Odt 4 Mg Tabrap) 4 mg PO X1 ONE; Protocol Stop: 04/08/24 05:44 Last Admin: 04/08/24 06:23 Dose: 4 mg Documented By: EF See above Consultations Consultation(s) initiated? (list below): No Diagnosis Differential diagnosis back pain/injury: sciatica, renal colic, pyelonephritis and other (Kidney stone, UTI ) Most likely diagnosis given after review of the tests above:: Ureterolithiasis Admission Indicated Admission indicated?: not indicated Admission Request Was there a request for admission?: No Disposition Plan Disposition Plan: Discharge Discharge Attestation Discharge Attestation: The patient and all family members were given an opportunity to ask questions and understood the discharge instructions. Discharge instructions specifically effects, indications for sooner follow up or return to the emergency department, and the expected course of current diagnosis. Patient condition: Stable Discharge Plan Plan Patient Disposition: HOME (Self Care) Prescriptions/Referrals Prescriptions/Med Rec: New tamsulosin [Flomax] 0.4 mg capsule 0.4 mg PO QDAY Qty: 7 0RF No Action cyclobenzaprine 10 mg tablet 10 mg PO TID PRN (Reason: muscle spasm) Qty: 20 0RF ibuprofen 800 mg tablet 800 mg PO Q8H PRN (Reason: pain) Qty: 30 0RF albuterol sulfate 90 mcg/actuation Hfa Aerosol Inhaler 2 puff INHALATION QDAY ibuprofen [IBU] 800 mg tablet 800 mg PO Q8H Qty: 20 0RF albuterol sulfate [Ventolin HFA] 90 mcg/actuation HFA aerosol inhaler 2 puff inhalation Q6H PRN (Reason: shortness of breath or wheezing) Qty: 8.5 0RF Referrals: Ivan Sam MD [Physician] - In 1 week Lam Brewer MD [Primary Care Provider] - In 1 week Problem List Clinical Impression: Ureterolithiasis Patient/Caregiver Discharge Instructions Education Materials: ED Kidney Stone w/ Colic Additional Instructions: Follow-up with your urologist in 1 week for recheck. His contact has been added to your discharge papers here today to facilitate. Feel free return to the emergency department sooner if symptoms worsen or if notes any new, concerning issues. Print Language: Chinese Stand Alone Forms: Marina Award Info., Patient Portal Info Letter
--- NOTE | 2024-04-08 07:07 | PC.NURSE ---
per dr dukes bolus scheduled maintenance fluid
--- NOTE | 2024-04-08 07:18 | PC.NURSE ---
Patient states pain 8/10. Informed ER provider and received verbal order for 4mg Morphine IV.
[2024-04-08 08:00] VITALS: BP 127/69; PULSE 62; RESP 18; TEMP 37; O2SAT 98
== END 2024-04-08 08:11 | disposition home or self-care (01) ==
PROVIDERS: Emergency Provider Emergency Medicine; PCP Family Medicine
DX: N13.2 Hydronephrosis with renal and ureteral calculous obstruction (principal); E78.00 Pure hypercholesterolemia, unspecified; J45.909 Unspecified asthma, uncomplicated; Z87.442 Personal history of urinary calculi
CPT/HCPCS: 36415; 74176; 80053; 80307; 81001; 83690; 85025; 96361; 96372; 96374; 96376; 99284; J1885; J2270; J7030; Q0162

== ENCOUNTER 2024-04-08 17:13 | Emergency (ER) | payer MEDICAID, SELFPAY ==
[2024-04-08 17:49] VITALS: BP 144/88; PULSE 74; RESP 18; TEMP 37.1; O2SAT 97; BMI 43.4
--- NOTE | 2024-04-08 17:55 | PD.EDRME ---
Rapid Medical Screening Exam RME Arrival date/time: 04/08/24 17:13 23-year-old male seen earlier today for renal stones reports with complaints of urinary obstruction, pain nausea and vomiting Chief Complaint: Nausea/Vomiting/Diarrhea Time Seen by Provider: 04/08/24 17:14 Vital signs: Vital Signs Temperature 98.7 F 04/08/24 17:49 Pulse Rate 74 04/08/24 17:49 Respiratory Rate 18 04/08/24 17:49 Blood Pressure 144/88 H 04/08/24 17:49 Pulse Oximetry (%) 97 04/08/24 17:49 Oxygen Delivery Method Room Air 04/08/24 17:49
--- NOTE | 2024-04-08 18:40 | EDNOTE_ITS ---
ED Male Genitalurinary RME/HPI General Chief complaint: Nausea/Vomiting/Diarrhea Stated complaint: N/V, DX'D W/ KIDNEY STONE THIS AM, FEELS WORSE Time Seen by Provider: 04/08/24 17:14 Source: patient Arrival date/time: 04/08/24 17:13 Mode of arrival: ambulatory Limitations: no limitations RME / HPI RME / HPI Narrative: 04/08/24 17:13 23-year-old male seen earlier today for renal stones reports with complaints of urinary obstruction, pain nausea and vomiting. Dr. Brown?s Main ED Evaluation: 23-year-old male presents from home with nausea and vomiting after taking pain medication. Patient was just seen here less than 24 hours ago. Earlier today, he was evaluated in the ED for acute right flank pain radiating to his back, which awakened him from sleep. During that visit, he was unable to provide a urine sample for analysis. A CT of the abdomen and pelvis revealed mild right hydronephrosis secondary to a 7 mm mid-right ureteral calculus. He was discharged with Flomax and instructed to follow up with urology. The patient reports a history of intermittent right flank pain beginning in January. He was previously evaluated in the ED on 01/24/24 for similar symptoms and hematuria. A CT at that time showed minimal right hydronephrosis secondary to a 6 mm right ureteropelvic junction (UPJ) calculus. He was discharged with instructions to strain his urine and follow up with urology. Due to insurance-related difficulties, he was unable to establish care with a urologist promptly. He returned to the ED in February for recurrent flank pain but declined repeat work-up. He received Toradol, Flomax, and nausea medication for symptom relief and was again advised to follow up with urology. He remained asymptomatic throughout March until this morning?s episode. After his discharge earlier today, he picked up his Flomax prescription but experienced nausea and vomiting after taking it. He has vomited approximately five times and returned to the ED due to persistent symptoms. He denies any past medical history or current medications. He has now scheduled an appointment with Dr. Sam, but it is a month away. Related Data Previous Rx's ?Medication ?Instructions ?Recorded ibuprofen 800 mg tablet 800 mg PO Q8H PRN pain #30 t abs 10/24/20 ibuprofen 800 mg tablet (IBU) 800 mg PO Q8H #20 tabs 0 02/22/24 tamsulosin 0.4 mg capsule (Flomax) 0.4 mg PO QDAY #7 c aps 04/08/24 Allergies Allergy/AdvReac Type Severity Reaction Status Date / Time No Known Allergies Allergy Verified 04/08/24 17:16 Review of Systems Review of Systems Systems Reviewed: All systems reviewed, normal except as documented Past Medical History Past Medical History NEUROLOGIC: Negative Neurological Disorders or Seizures CARDIAC: Positive Hypercholesterolemia; Negative Cardiac Disorders or Congestive Heart Failure RESPIRATORY: Positive Asthma; Negative Chronic Obstructive Pulmonary Disease (COPD) GASTROINTESTINAL: Positive Gastrointestinal Disorders, Gastroesophageal Reflux Disease and Obesity; Negative Hepatitis GENITOURINARY: Positive Kidney Stones; Negative Genitourinary Disorders or Renal Disease MUSCULOSKELETAL: Positive Fractures; Negative Musculoskeletal Disorders ENDOCRINE: Negative Endocrine Disorders, Diabetes Mellitus Type 1 or Diabetes Mellitus Type 2 HEMATOLOGIC: Negative Blood Disorders, Leukemia or Sickle Cell Disease OTHER HISTORY: Positive Hospitalization; Negative Autoimmune Disease, Shingles, Falls, Blood Transfusions, Blood Transfusion Reaction, Anesthesia Reactions, Chemotherapy, Radiation Therapy, Chicken Pox, Measles, Mumps or Cancer Family History FAMILY HISTORY: Positive Family Respiratory Disorders and Family Surgery; Negative Family Psychiatric Problems, Family Cardiac Disorders, Family Gastrointestinal Problems, Family Cancer or Family Anesthesia Reaction Social History SMOKING STATUS: Never smoker SUBSTANCE USE: does not use ED Exam Narrative Physical exam: GENERAL APPEARANCE: alert and oriented x 4, well-developed, well-nourished, no acute distress VITALS: All vitals were reviewed and the pulse ox is 97% on room air, which is normal according to my interpretation. HEENT: Normocephalic, atraumatic; pupils equal, round, reactive to light; EOMI; mucous membranes pink, moist; oropharynx clear NECK: Supple LUNGS: CTABL; no wheezes, no rales, no rhonchi HEART: Regular rate, regular rhythm; normal S1, S2; no murmurs ABDOMEN: non distended; normal BS; soft, no tenderness, no guarding, no rebound; no masses, no organomegaly, no hernia BACK: + left CVA tenderness EXTREMITIES: atraumatic; no edema NEUROLOGIC: awake; alert and oriented x4; cranial nerves II-XII grossly intact; no focal sensory or motor deficits PSYCHIATRIC: appropriate mood and affect SKIN: warm, dry, normal color; no rashes General Limitations: Present no limitations Course Quality Measures none Orders Category Date Time Status IV [Insert IV] NOW Care 04/08/24 17:54 Active Urinalysis, C/S if Indicated Stat Lab 04/08/24 20:09 Completed HYDROmorphone INJ [Dilaudid Inj] Med 04/08/24 17:54 Discontinued 1 mg IVP X1 ONE Ketorolac Inj [Toradol Inj] Med 04/08/24 17:56 Discontinued 30 mg IVP X1 ONE Morphine Inj Med 04/08/24 17:56 Discontinued 2 mg IVP X1 ONE Ondansetron Inj [Zofran Inj] Med 04/08/24 18:40 Discontinued 4 mg IV X1 ONE Promethazine Inj [Phenergan Inj] Med 04/08/24 17:54 Discontinued 12.5 mg IM X1 ONE Sodium Chloride 0.9% 1000 ml [Ns] 1,000 ml Med 04/08/24 18:40 Discontinued IV 999 mls/hr Vital Signs Vital signs: Vital Signs Temperature 98.7 F 04/08/24 17:49 Pulse Rate 74 04/08/24 17:49 Respiratory Rate 18 04/08/24 17:49 Blood Pressure 144/88 H 04/08/24 17:49 Pulse Oximetry (%) 97 04/08/24 17:49 Oxygen Delivery Method Room Air 04/08/24 17:49 Urogenital - Male MDM Narrative MDM Narrative:: Differential diagnoses include renal colic, possible urinary tract infection (UTI), diverticulitis, small bowel obstruction (SBO), and musculoskeletal pain. 1941 Patient is still unable to produce urine. Waiting on urine collection and UA. Scribe Attestation: Sindi Harrington, am scribing for and in the presence of Dr. Brown. Provider Notation: Although this document has been carefully reviewed, there may still be some phonetic and other typographical errors. These errors are purely grammatical due to imperfections in the software program and should not be construed in any way to compromise the substance of the patient's medical care during this visit. Patient data External records reviewed:: [facility] previous records (ED visits from January 2024 and February 2024 reviewed.) Clinical information provided by:: patient Social determinants that could affect healthcare access:: none Patient has the following chronic illnesses:: na How is presenting disease/condition affected by chronic disease/condition?: no chronic disease Evaluation data The following diagnostics were reviewed and interpreted by me:: lab results and radiology exam(s) Lab and/or radiology exams considered but not ordered:: na Interpretation Summary: Reviewed CT abd/pelvis results from ED visit earlier today: Examination: CT abdomen and pelvis without contrast. Date and time of exam:April 08, 2024 at 0458 hrs. Indications: Onset right flank pain today Findings: No focal liver or splenic lesions No gallstones No pancreatic or adrenal mass Mild right hydronephrosis secondary to 7 mm mid right ureteral calculus Normal appendix No bowel obstruction Contracted urinary bladder The osseous structures are intact Impression: Mild right hydronephrosis secondary to 7 mm mid right ureteral calculus Dictated By: Helio Glover MD Medications / Prescriptions Medications or Prescriptions considered but not ordered:: na Medication administrations:: Medication Administration History Discontinued Medications Hydromorphone HCl (Hydromorphone Inj 2 Mg/Ml Vial) 1 mg IVP X1 ONE Stop: 04/08/24 17:55 Last Admin: 04/08/24 19:42 Dose: Not Given Documented By: CCT Non-Admin Reason: Discontinued Sodium Chloride (Ns) 1,000 mls @ 999 mls/hr IV .Q1H1M ONE Stop: 04/08/24 19:40 Last Admin: 04/08/24 19:26 Dose: 999 mls/hr Documented By: CCT Ketorolac Tromethamine (Ketorolac Inj 30 Mg/Ml Vial) 30 mg IVP X1 ONE Stop: 04/08/24 17:57 Last Admin: 04/08/24 19:26 Dose: 30 mg Documented By: CCT Morphine Sulfate (Morphine Sulf Inj 10 Mg/Ml Vial) 2 mg IVP X1 ONE Stop: 04/08/24 17:57 Last Admin: 04/08/24 19:43 Dose: Not Given Documented By: CCT Non-Admin Reason: Discontinued Ondansetron HCl (Ondansetron Inj 2 Mg/Ml Inj 2 Ml) 4 mg IV X1 ONE; Protocol Stop: 04/08/24 18:41 Last Admin: 04/08/24 19:26 Dose: 4 mg Documented By: CCT Promethazine HCl (Promethazine Inj 25 Mg/Ml Vial) 12.5 mg IM X1 ONE; Protocol Stop: 04/08/24 17:55 Last Admin: 04/08/24 19:42 Dose: Not Given Documented By: CCT Non-Admin Reason: Discontinued as above Consultations Consultation(s) initiated? (list below): No Diagnosis Urogenital Male Differential Diagnosis: other (see narrative) Most likely diagnosis given after review of the tests above:: Renal colic Admission Indicated Admission indicated?: not indicated Admission Request Was there a request for admission?: No Disposition Plan Disposition Plan: Discharge Discharge Attestation Discharge Attestation: The patient and all family members were given an opportunity to ask questions and understood the discharge instructions. Discharge instructions specifically effects, indications for sooner follow up or return to the emergency department, and the expected course of current diagnosis. Patient condition: Stable Discharge Plan Plan Patient Disposition: HOME (Self Care) Disposition Comment: Stable for discharge Patient condition on transfer: Stable Prescriptions/Referrals Prescriptions/Med Rec: No Action ibuprofen 800 mg tablet 800 mg PO Q8H PRN (Reason: pain) Qty: 30 0RF ibuprofen [IBU] 800 mg tablet 800 mg PO Q8H Qty: 20 0RF tamsulosin [Flomax] 0.4 mg capsule 0.4 mg PO QDAY Qty: 7 0RF Referrals: Lam Brewer MD [Primary Care Provider] - In 1 week Problem List Clinical Impression: Renal colic Patient/Caregiver Discharge Instructions Print Language: Tongan Stand Alone Forms: Marina Award Info., Patient Portal Info Letter
[2024-04-08 19:21] VITALS: BP 129/89; PULSE 77; RESP 18; TEMP 37.1; O2SAT 96
[2024-04-08] MEDS: ONDANSETRON INJ 2 MG/ML INJ 2 ML 4 MG IV (19:26)
[2024-04-08] MEDS: KETOROLAC INJ 30 MG/ML VIAL IVP (19:26)
[2024-04-08] MEDS: SODIUM CHLORIDE 0.9% 1000 ML 1,000 ML 999 ML IV (19:26)
[2024-04-08 20:18] LABS: Collection Type, Urine Clean Catch; Squamous Epithelial Cell,Urine 0 /hpf (0-5)
[2024-04-08 20:26] LABS: Bilirubin,Urine Negative (Negative); Blood,Urine Negative (Negative); Clarity,Urine Clear (Clear/Hazy); Color,Urine Lt-Yellow (Lt Yel-Yel); Culture Indicated,Urine Not Indicated; Glucose, Urine Negative (Negative); Ketones,Urine Negative (Negative); Leukocyte Esterase,Urine Negative (Negative); Nitrite,Urine Negative (Negative); Protein,Urine Negative (Neg - Trace); RBC,Urine 5 /hpf (0-3); Specific Gravity,Urine 1.021 (1.001-1.035); Urobilinogen,Urine Negative mg/dL (0.0-1.0); WBC,Urine 1 /hpf (0-5)
[2024-04-08 21:09] VITALS: BP 137/77; PULSE 70; RESP 18; O2SAT 95
== END 2024-04-08 21:10 | disposition home or self-care (01) ==
PROVIDERS: Emergency Provider Emergency Medicine; PCP Family Medicine
DX: N13.2 Hydronephrosis with renal and ureteral calculous obstruction (principal)
CPT/HCPCS: 81001; 96361; 96374; 96375; 99284; J1885; J2405; J7030

== ENCOUNTER 2024-05-12 17:29 | Emergency (ER) | payer MEDICAID, SELFPAY ==
[2024-05-12 18:04] VITALS: BP 149/84; PULSE 71; RESP 20; TEMP 37; O2SAT 97; BMI 40.6
--- NOTE | 2024-05-12 18:47 | EDNOTE_ITS ---
ED Male Genitalurinary RME/HPI General Chief complaint: Urogenital-Male Stated complaint: RIGHT FLANK PAIN TIMES 1 HOUR Time Seen by Provider: 05/12/24 18:07 Arrival date/time: 05/12/24 17:29 Limitations: no limitations RME / HPI RME / HPI Narrative: 23-year-old male with known right sided nephrolithiasis with hydronephrosis presents for evaluation of right flank pain x 1 week. Patient endorses intermittent hematuria, nausea, vomiting, chills. Denies fever, rash, diarrhea, chest pain, urinary retention. Patient reports that he has a pending urology appointment for later this month. He reports he has been taking ibuprofen at home with minimal relief of pain. Patient states that he ran out of his Flomax and Zofran. Related Data Previous Rx's ?Medication ?Instructions ?Recorded ibuprofen 800 mg tablet 800 mg PO Q8H PRN pain #30 t abs 10/24/20 ibuprofen 800 mg tablet (IBU) 800 mg PO Q8H #20 tabs 0 02/22/24 hydrocodone 5 mg-acetaminophen 325 1 tab PO .q4-6 PRN pain #14 tabs 04/08/24 mg tablet ondansetron 4 mg disintegrating 4 mg PO Q6H PRN nausea and 04/08/24 tablet vomiting #14 tabs tamsulosin 0.4 mg capsule (Flomax) 0.4 mg PO QDAY #7 c aps 04/08/24 acetaminophen 325 mg tablet 325 mg PO QID PRN pain #30 tabs 05/12/24 (Tylenol) ondansetron 4 mg disintegrating 4 mg PO Q8H PRN nausea and 05/12/24 tablet vomiting #14 tabs tamsulosin 0.4 mg capsule (Flomax) 0.4 mg PO QDAY #30 caps 05/12/24 Allergies Allergy/AdvReac Type Severity Reaction Status Date / Time No Known Allergies Allergy Verified 05/12/24 17:32 Review of Systems Constitutional Constitutional: Reports body ache(s), Reports chills, Denies fever(s) and Denies night sweats ENT Ears, Nose, Mouth, and Throat: Denies neck pain Cardiovascular Cardiovascular: Denies chest pain, Denies diaphoresis, Denies dyspnea and Denies palpitations Respiratory Respiratory: Denies cough, Denies dyspnea and Denies hemoptysis Gastrointestinal Gastrointestinal: Reports abdominal pain, Denies change in stool character and Reports nausea Genitourinary Genitourinary: Denies dysuria, Reports flank pain, Denies hematuria and Denies urinary frequency Musculoskeletal Musculoskeletal: Denies abnormal gait, Reports back pain, Reports myalgias and Denies neck pain Integumentary/Breasts Skin/Breast: Denies rash Neurologic Neurologic: Denies abnormal gait Endocrine Endocrine: Denies palpitations Past Medical History Past Medical History NEUROLOGIC: Negative Neurological Disorders or Seizures CARDIAC: Positive Hypercholesterolemia; Negative Cardiac Disorders or Congestive Heart Failure RESPIRATORY: Positive Asthma; Negative Chronic Obstructive Pulmonary Disease (COPD) GASTROINTESTINAL: Positive Gastrointestinal Disorders, Gastroesophageal Reflux Disease and Obesity; Negative Hepatitis GENITOURINARY: Positive Kidney Stones; Negative Genitourinary Disorders or Renal Disease MUSCULOSKELETAL: Positive Fractures (right leg); Negative Musculoskeletal Disorders ENDOCRINE: Negative Endocrine Disorders, Diabetes Mellitus Type 1 or Diabetes Mellitus Type 2 HEMATOLOGIC: Negative Blood Disorders, Leukemia or Sickle Cell Disease OTHER HISTORY: Positive Hospitalization; Negative Autoimmune Disease, Shingles, Falls, Blood Transfusions, Blood Transfusion Reaction, Anesthesia Reactions, Chemotherapy, Radiation Therapy, Chicken Pox, Measles, Mumps or Cancer Family History FAMILY HISTORY: Positive Family Respiratory Disorders and Family Surgery; Negative Family Psychiatric Problems, Family Cardiac Disorders, Family Gastrointestinal Problems, Family Cancer or Family Anesthesia Reaction Social History SMOKING STATUS: Current some day smoker SUBSTANCE USE: does not use ED Exam General Limitations: Present no limitations General appearance: Present alert and in no apparent distress Head Head exam: Present atraumatic and normocephalic Eye Eye exam: Present normal appearance and EOMI ENT ENT exam: Present normal oropharynx and mucous membranes moist Neck Neck exam: Present full ROM Chest Chest inspection: Present normal inspection and symmetric chest wall rise Respiratory Respiratory exam: Absent respiratory distress or wheezes Cardiovascular Cardiovascular exam: Present regular rate and +S1 Abdominal Exam Abdominal exam: Present soft; Absent distention or tenderness Back Exam Back exam: Present CVA tenderness (R); Absent CVA tenderness (L) or vertebral tenderness Neurological Exam Neurological exam: Present alert Psychiatric Psychiatric exam: Present normal affect Skin Skin exam: Present warm, dry and normal color Course Quality Measures none Orders Category Date Time Status Insert IV NOW Care 05/12/24 18:24 Completed CBC Stat Lab 05/12/24 18:57 Completed CMP [Comprehensive Metabolic Panel] Stat Lab 05/12/24 18:57 Completed UA, C/S IF [Urinalysis, C/S if Indicated] Stat Lab 05/12/24 18:52 Completed Ketorolac Inj [Toradol Inj] Med 05/12/24 19:03 Discontinued 30 mg IVP X1 ONE Morphine Inj Med 05/12/24 20:05 Discontinued 4 mg IVP X1 ONE Ondansetron Inj [Zofran Inj] Med 05/12/24 18:24 Discontinued 4 mg IV X1 ONE Sodium Chloride 0.9% 1000 ml [Ns] 1,000 ml Med 05/12/24 18:24 Discontinued IV 999 mls/hr Reevaluation(s) Reevaluation #1: Reevaluated at approximately 2100. Patient reported that his pain was improved. We discussed plan for CT abdomen pelvis and he stated that he was comfortable being discharged with out repeat imaging today given he has an appointment with neurology. Given stable vital signs and improved symptoms patient appropriate for discharge with outpatient follow-up. Return precautions provided. Vital Signs Vital signs: Vital Signs Temperature 98.6 F 05/12/24 18:04 Pulse Rate 71 05/12/24 18:04 Respiratory Rate 20 05/12/24 18:04 Blood Pressure 149/84 H 05/12/24 18:04 Pulse Oximetry (%) 97 05/12/24 18:04 Oxygen Delivery Method Room Air 05/12/24 18:04 Pulse ox 97% on room air, within normal limits. Urogenital - Male MDM Narrative MDM Narrative:: 23-year-old male with known right sided nephrolithiasis (last CT performed x 1 month ago) presents with recurrent right flank pain. Patient reported that he was out of his medication at home. I initially ordered a CT abdomen and pelvis to reevaluate for hydronephrosis and obstructive stone, however patient's symptoms improved in the department and given reassuring labs and shared decision making CT was deferred at this time. Mild leukocytosis likely related to recurrent vomiting and pain, however patient afebrile and nontoxic-appearing therefore less concern for systemic infection at this time. Patient reports plan to follow-up with urology this month (patient cannot remember the date) therefore patient was discharged home with refill of medication and plan to follow-up with primary care within the week for reevaluation. Return precautions were provided. Patient stable at time of discharge. Patient data External records reviewed:: [facility] previous records Clinical information provided by:: patient Social determinants that could affect healthcare access:: none Patient has the following chronic illnesses:: Known right sided nephrolithiasis with history of hydronephrosis. How is presenting disease/condition affected by chronic disease/condition?: caused by Evaluation data The following diagnostics were reviewed and interpreted by me:: lab results Lab and/or radiology exams considered but not ordered:: CT abdomen and pelvis considered not ordered following shared decision making with patient. Interpretation Summary: UA significant for crystalluria and mild hematuria. Mild leukocytosis. No evidence of endorgan damage or gross electrolyte abnormality. Kidney function within normal limits. Medications / Prescriptions Medications or Prescriptions considered but not ordered:: Rx given. Medication administrations:: Medication Administration History Discontinued Medications Sodium Chloride (Ns) 1,000 mls @ 999 mls/hr IV .Q1H1M ONE Stop: 05/12/24 19:24 Last Admin: 05/12/24 19:22 Dose: 999 mls/hr Documented By: YANI Ketorolac Tromethamine (Ketorolac Inj 30 Mg/Ml Vial) 30 mg IVP X1 ONE Stop: 05/12/24 19:04 Last Admin: 05/12/24 19:42 Dose: 30 mg Documented By: LANETTE Morphine Sulfate (Morphine Sulf Inj 10 Mg/Ml Vial) 4 mg IVP X1 ONE Stop: 05/12/24 20:06 Last Admin: 05/12/24 20:30 Dose: 4 mg Documented By: LANETTE Ondansetron HCl (Ondansetron Inj 2 Mg/Ml Inj 2 Ml) 4 mg IV X1 ONE; Protocol Stop: 05/12/24 18:25 Last Admin: 05/12/24 19:41 Dose: 4 mg Documented By: LANETTE Rx given. Consultations Consultation(s) initiated? (list below): No Diagnosis Urogenital Male Differential Diagnosis: urinary tract infection, acute retention of urine and other (Nephrolithiasis, hematuria, septic nephrolithiasis.) Most likely diagnosis given after review of the tests above:: Crystal urea, nephrolithiasis, hematuria. Admission Indicated Admission indicated?: not indicated Admission Request Was there a request for admission?: No Disposition Plan Disposition Plan: Discharge Discharge Attestation Discharge Attestation: The patient and all family members were given an opportunity to ask questions and understood the discharge instructions. Discharge instructions specifically effects, indications for sooner follow up or return to the emergency department, and the expected course of current diagnosis. Patient condition: Stable Discharge Plan Plan Patient Disposition: HOME (Self Care) Disposition Comment: stable Prescriptions/Referrals Prescriptions/Med Rec: New tamsulosin [Flomax] 0.4 mg capsule 0.4 mg PO QDAY Qty: 30 0RF ondansetron 4 mg tablet,disintegrating 4 mg PO Q8H PRN (Reason: nausea and vomiting) Qty: 14 0RF acetaminophen [Tylenol] 325 mg tablet 325 mg PO QID PRN (Reason: pain) Qty: 30 0RF No Action ibuprofen 800 mg tablet 800 mg PO Q8H PRN (Reason: pain) Qty: 30 0RF ibuprofen [IBU] 800 mg tablet 800 mg PO Q8H Qty: 20 0RF ondansetron 4 mg tablet,disintegrating 4 mg PO Q6H PRN (Reason: nausea and vomiting) Qty: 14 0RF hydrocodone-acetaminophen 5-325 mg tablet 1 tab PO .q4-6 MDD 6 tabs PRN (Reason: pain) Qty: 14 0RF tamsulosin [Flomax] 0.4 mg capsule 0.4 mg PO QDAY Qty: 7 0RF Referrals: Lam Brewer MD [Primary Care Provider] - In 1 week Problem List Clinical Impression: Chronic right flank pain, Hematuria, Crystalluria, History of nephrolithiasis Impression comment: Take Flomax daily for the next 3 days. Take Zofran as needed for nausea and vomiting. Take ibuprofen or Tylenol every 6 hours as needed for pain. Call urology for follow-up appointment. Follow-up with primary care within the next week for reevaluation. Return to ED if her symptoms worsen or change. Patient/Caregiver Discharge Instructions Education Materials: ED Flank Pain, Uncertain Cause, ED Hematuria Print Language: Urdu Stand Alone Forms: Marina Award Info., Patient Portal Info Letter PA/GROUND MIXER Supervising Physician PA/GROUND MIXER Supervising Physician: Dr. Garrett
[2024-05-12 19:12] LABS: Collection Type, Urine Clean Catch; RBC,Urine 0 /hpf (0-3); Squamous Epithelial Cell,Urine 0 /hpf (0-5); WBC,Urine 0 /hpf (0-5)
[2024-05-12 19:19] LABS: Basophils # (Auto) 0.1 Thou/mm3 (0.0-0.2); Basophils % (Auto) 1 % (0-2.5); Eosinophils # (Auto) 0.3 Thou/mm3 (0.0-0.5); Eosinophils % (Auto) 2 % (0-10); Hematocrit 42.4 % (41.0-53.0); Immature Granulocytes % (Auto) 0 % (0-0); Immature Granulocytes Auto 0.03 Thou/mm3 (0.00-0.00); Lymphocytes # (Auto) 3.3 Thou/mm3 (1.0-4.8); Lymphocytes % (Auto) 25 % (10-50); Mean Corpuscular HGB Conc 35.4 g/dl (31.0-37.0); Mean Corpuscular Hemoglobin 30.2 pg (25.0-35.0); Mean Corpuscular Volume 85 fL (80-100); Monocytes % (Auto) 7 % (0-12); Neutrophils # (Auto) 8.6 Thou/mm3 (1.8-7.7); Neutrophils % (Auto) 65 % (37-80); Nucleated Red Blood Cell % 0 /100 WBC (0); Platelet Count 348 Thou/mm3 (140-440); RDW Standard Deviation 37.1 fL (35.1-43.9); Red Blood Count 4.97 Miln/mm3 (4.50-5.90); White Blood Count 13.2 Thou/mm3 (3.8-10.6)
[2024-05-12 19:20] LABS: Bilirubin,Urine Negative (Negative); Blood,Urine Trace-Intact (Negative); Color,Urine Yellow (Lt Yel-Yel); Culture Indicated,Urine Not Indicated; Glucose, Urine Negative (Negative); Ketones,Urine Negative (Negative); Leukocyte Esterase,Urine Negative (Negative); Nitrite,Urine Negative (Negative); Protein,Urine 2+ (Neg - Trace); Specific Gravity,Urine >= 1.030 (1.001-1.035); Urobilinogen,Urine 0.2 mg/dL (0.0-1.0)
[2024-05-12] MEDS: SODIUM CHLORIDE 0.9% 1000 ML 1,000 ML 999 ML IV (19:22)
[2024-05-12 19:39] LABS: Alanine Aminotransferase 15 U/L (10-49); Albumin, Serum 4.6 gm/dL (3.5-5.0); Albumin/Globulin Ratio 1.6 (1.2-2.2); Alkaline Phosphatase 75 U/L (46-116); Anion Gap 10 (7-16); Aspartate Amino Transferase 15 U/L (0-34); BUN/Creatinine Ratio 11 Ratio (12-20); Bilirubin,Total 0.6 mg/dL (0.3-1.2); Blood Urea Nitrogen 11 mg/dL (9-23); Calcium 9.6 mg/dL (8.3-10.6); Calcium (Corrected) 9.6 mg/dL (8.5-10.1); Carbon Dioxide 24.9 mMol/L (20.0-31.0); Chloride 103 mMol/L (98-107); Estimated Creatinine Clearance 152.6 mL/min (>60); Globulin 2.9 gm/dL (2.3-3.5); Glucose 99 mg/dL (74-106); Osmolality,Calculated 275 (275-295); Sodium 138 mMol/L (136-145); Total Protein 7.5 gm/dL (5.7-8.2); eGFR > 60 See Note
[2024-05-12] MEDS: ONDANSETRON INJ 2 MG/ML INJ 2 ML 4 MG IV (19:41)
[2024-05-12 19:42] LABS: Amorphous Crystals,Urine Present (Absent); Calcium Oxalate Crystals,Urine 1+
[2024-05-12] MEDS: KETOROLAC INJ 30 MG/ML VIAL IVP (19:42)
[2024-05-12 19:43] LABS: Clarity,Urine Turbid (Clear/Hazy)
[2024-05-12] MEDS: MORPHINE SULF INJ 10 MG/ML VIAL 4 MG IVP (20:30)
== END 2024-05-12 21:15 | disposition home or self-care (01) ==
PROVIDERS: Physician Assistant; Emergency Provider Emergency Medicine; PCP Family Medicine
DX: N13.2 Hydronephrosis with renal and ureteral calculous obstruction (principal); R82.998 Other abnormal findings in urine
CPT/HCPCS: 36415; 80053; 81001; 85025; 96374; 96375; 99284; J1885; J2270; J2405; J7030

== ENCOUNTER 2024-05-19 01:32 | Emergency (ER) | payer MEDICAID, SELFPAY ==
[2024-05-19 01:32] VITALS: BMI 39.9
[2024-05-19 01:38] VITALS: BP 152/103; PULSE 75; RESP 97; TEMP 36.7; O2SAT 97
--- NOTE | 2024-05-19 01:49 | PD.EDRME ---
Rapid Medical Screening Exam RME Arrival date/time: 05/19/24 01:32 23 yo m present to ED for c/o right flank pain, hx of kidney stone I have greeted and performed a focused initial assessment of this patient. A comprehensive ED assessment and evaluation of the patient, analysis of all test results, and completion of the medical decision making process will be conducted by additional ED providers. Chief Complaint: Abdominal Pain Vital signs: Vital Signs Temperature 98.1 F 05/19/24 01:38 Pulse Rate 75 05/19/24 01:38 Respiratory Rate 97 H 05/19/24 01:38 Blood Pressure 152/103 H 05/19/24 01:38 Pulse Oximetry (%) 97 05/19/24 01:38 Oxygen Delivery Method Room Air 05/19/24 01:38
[2024-05-19] MEDS: KETOROLAC INJ 60 MG/2 ML VIAL 30 MG IM (02:16)
[2024-05-19 02:21] LABS: Basophils # (Auto) 0.1 Thou/mm3 (0.0-0.2); Basophils % (Auto) 1 % (0-2.5); Eosinophils # (Auto) 0.3 Thou/mm3 (0.0-0.5); Eosinophils % (Auto) 3 % (0-10); Hematocrit 37.8 % (41.0-53.0); Hemoglobin 13.5 g/dL (13.5-16.0); Immature Granulocytes % (Auto) 0 % (0-0); Immature Granulocytes Auto 0.02 Thou/mm3 (0.00-0.00); Lymphocytes % (Auto) 34 % (10-50); Mean Corpuscular HGB Conc 35.7 g/dl (31.0-37.0); Mean Corpuscular Hemoglobin 30.1 pg (25.0-35.0); Mean Corpuscular Volume 84 fL (80-100); Monocytes # (Auto) 0.9 Thou/mm3 (0.0-0.8); Monocytes % (Auto) 8 % (0-12); Neutrophils # (Auto) 6.2 Thou/mm3 (1.8-7.7); Neutrophils % (Auto) 54 % (37-80); Nucleated Red Blood Cell % 0 /100 WBC (0); Platelet Count 305 Thou/mm3 (140-440); RDW Standard Deviation 36.2 fL (35.1-43.9); Red Blood Count 4.49 Miln/mm3 (4.50-5.90); White Blood Count 11.5 Thou/mm3 (3.8-10.6)
--- NOTE | 2024-05-19 02:47 | XR_ITS ---
Examination: CT abdomen and pelvis without contrast. Coronal 3-D reconstructions. Sagittal 2-D reconstructions. Date and time of exam:May 21, 2024 0312 hrs. Indications: Onset flank pain this week, history kidney stones CTDI: vol (mGy): 16.3 DLP: (mGycm): 1121 Technique: Axial images of the abdomen have been obtained, 3 mm slice thickness Intravenous contrast material has not been administered. Low dose protocols were performed. One or more of the following dose reduction techniques were used; automated exposure control, adjustment of the mA and/or KV according to patient size, use of iterative reconstruction technique. Findings: No focal liver or splenic lesions Contracted gallbladder No pancreatic or adrenal mass Mild right hydronephrosis secondary to 6 mm distal right ureterovesical junction calculus Normal appendix No bowel obstruction The osseous structures are intact Impression: Mild right hydronephrosis secondary to 6 mm distal right ureterovesical junction calculus
[2024-05-19 02:56] LABS: Alanine Aminotransferase 13 U/L (10-49); Albumin, Serum 4.4 gm/dL (3.5-5.0); Albumin/Globulin Ratio 1.6 (1.2-2.2); Alkaline Phosphatase 68 U/L (46-116); Anion Gap 7 (7-16); Aspartate Amino Transferase 14 U/L (0-34); BUN/Creatinine Ratio 16 Ratio (12-20); Bilirubin,Total 0.5 mg/dL (0.3-1.2); Blood Urea Nitrogen 16 mg/dL (9-23); Calcium 8.9 mg/dL (8.3-10.6); Calcium (Corrected) 8.9 mg/dL (8.5-10.1); Carbon Dioxide 24.1 mMol/L (20.0-31.0); Chloride 106 mMol/L (98-107); Estimated Creatinine Clearance 151.1 mL/min (>60); Globulin 2.7 gm/dL (2.3-3.5); Glucose 107 mg/dL (74-106); Lipase 35 U/L (12-53); Osmolality,Calculated 275 (275-295); Potassium 3.8 mMol/L (3.4-5.1); Sodium 137 mMol/L (136-145); Total Protein 7.1 gm/dL (5.7-8.2); eGFR > 60 See Note
[2024-05-19] MEDS: ONDANSETRON ODT 4 MG TABRAP PO (03:23)
--- NOTE | 2024-05-19 03:54 | PRELIM_ITS ---
CT scan of the abdomen and pelvis without intravenous contrast (axial sections with sagittal and coronal reformats) May 19, 2024 at 0312 hours Clinical History: Flank pain history of kidney stone. Comparison: None available at the time of this report. Findings: The lung bases are clear. Right UVJ stone measuring 0.6 cm, the stone is not visible on the onion topper image, mild right hydroureteronephrosis. The liver, gallbladder, pancreas, spleen, and adrenals are unremarkable on this noncontrast study. No evidence of bowel obstruction. The appendix is within normal limits. There is no mesenteric or retroperitoneal adenopathy. The urinary bladder is unremarkable. There is no free fluid or free air. The osseous structures are unremarkable. Impression: Right UVJ stone associated with hydroureteronephrosis. Report Electronically Signed By: Husam Bustillo 05/19/2024 3:54:13 AM [EST]
[2024-05-19 04:10] LABS: Collection Type, Urine Voided
[2024-05-19 04:17] LABS: Bilirubin,Urine Negative (Negative); Blood,Urine 2+ (Negative); Clarity,Urine Clear (Clear/Hazy); Color,Urine Colorless (Lt Yel-Yel); Glucose, Urine Negative (Negative); Ketones,Urine Negative (Negative); Leukocyte Esterase,Urine Negative (Negative); Nitrite,Urine Negative (Negative); Protein,Urine Negative (Neg - Trace); RBC,Urine 1 /hpf (0-3); Specific Gravity,Urine 1.008 (1.001-1.035); Squamous Epithelial Cell,Urine < 1 /hpf (0-5); Urobilinogen,Urine Negative mg/dL (0.0-1.0); WBC,Urine 1 /hpf (0-5)
--- NOTE | 2024-05-19 04:25 | EDNOTE_ITS ---
ED Abdominal Pain RME/HPI General Chief Complaint: Abdominal Pain Stated complaint: KIDNEY STONE PAIN Time seen by provider: 05/19/24 04:22 Arrival date/time: 05/19/24 01:32 23 year old male with past medical history of kidney stone with c/o of right flank/abd pain for 1 day. patient report pain is similar to hx of kidney stone. LOCATION: [generalized throughout the entire abdomen and periumbilical region] SEVERITY: Symptoms are described as being severe with limitations on activities of daily living QUALITY: Symptoms are described as being cramping /sharp CONTEXT: The patient is unable to identify any inciting events. DURATION/TIMING: The symptoms started approximately one day ago and have been waxing/waning but always present without ever completely resolving. ASSOCIATED SYMPTOMS: The patient is unable to identify any other associated symptoms. MODIFYING FACTORS: The patient is unable to identify any alleviating or aggravating symptoms. PERTINENT ROS: no fevers, no anorexia, no nausea or vomiting, no diarrhea, no ripping or tearing sensations, no syncope or presyncopal symptoms, denies trauma, denies genital pain REVIEW OF SYSTEMS: See History of Present Illness - with the exception of those mentioned in the history of present illness, all other systems reviewed and reported as negative GENERAL: In general the patient is awake, interactive, in an emergency department gurney. moderate discomfrot HEAD/EYES/EARS/NOSE/THROAT: normo-cephalic, atraumatic, mucus membranes are mara st, anicteric, palpebral conjunctiva is pink, trachea is midline. CARDIOVASCULAR: regular rate and regular rhythm, no murmurs, heart sounds are not distant, strong pulses in all four extremities that are equal and symmetric bilateral upper and lower extremities, normal capillary refill. CHEST/PULMONARY: normal chest rise and fall, good air movement, clear to auscultation bilaterally, normal inspiratory to expiratory ratios without evidence of respiratory distress. NECK: No midline/Paraspinal tenderness, no step off ROM/Strenght intact No Kernig and bruzinski sign. No trauma ABDOMEN: soft, not tender, no masses appreciated BACK: normal range of motion without pain. NEUROLOGICAL: cranio-facial features are symmetric, moves all four extremities equally without obvious limitations or weakness. EXTREMITY: no tenderness to palpation over the long bones or large joints of the bilateral upper and lower extremities, no joint swelling, no joint erythema, no signs of trauma, no unilateral leg swelling and no peripheral edema. SKIN: warm, dry, well-perfused, no jaundice, no rash, no telangiectasias or petechia. PSYCH: calm, cooperative, no evidence of psychosis or agitation RME / HPI RME / HPI narrative: 05/19/24 01:32 23 yo m present to ED for c/o right flank pain, hx of kidney stone I have greeted and performed a focused initial assessment of this patient. A comprehensive ED assessment and evaluation of the patient, analysis of all test results, and completion of the medical decision making process will be conducted by additional ED providers. Related Data Previous Rx's ?Medication ?Instructions ?Recorded ibuprofen 800 mg tablet 800 mg PO Q8H PRN pain #30 t abs 10/24/20 ibuprofen 800 mg tablet (IBU) 800 mg PO Q8H #20 tabs 0 02/22/24 hydrocodone 5 mg-acetaminophen 325 1 tab PO .q4-6 PRN pain #14 tabs 04/08/24 mg tablet ondansetron 4 mg disintegrating 4 mg PO Q6H PRN nausea and 04/08/24 tablet vomiting #14 tabs tamsulosin 0.4 mg capsule (Flomax) 0.4 mg PO QDAY #7 c aps 04/08/24 acetaminophen 325 mg tablet 325 mg PO QID PRN pain #30 tabs 05/12/24 (Tylenol) ondansetron 4 mg disintegrating 4 mg PO Q8H PRN nausea and 05/12/24 tablet vomiting #14 tabs tamsulosin 0.4 mg capsule (Flomax) 0.4 mg PO QDAY #30 caps 05/12/24 ketorolac 10 mg tablet 10 mg PO Q8H PRN pain #20 ta bs 05/19/24 ondansetron 4 mg disintegrating 4 mg PO Q8H PRN nausea and 05/19/24 tablet vomiting #20 tabs tamsulosin 0.4 mg capsule (Flomax) 0.4 mg PO QDAY #30 caps 05/19/24 Allergies Allergy/AdvReac Type Severity Reaction Status Date / Time No Known Allergies Allergy Verified 05/19/24 01:34 Course Course Course Narrative: Presentation most consistent with Renal Colic from a Non-infected Kidney Stone. Given History and Exam I have lower suspicion for atypical appendicitis, genital torsion, acute cholecystitis, AAA, Aortic Dissection, Serious Bacterial Illness or other emergent intraabdominal pathology. Workup: CBC, CMP, CT Abd/Pelvis noncontrast, UA, reassess, Toradol 30mg, Zofran 4mg? Findings: Reassesment: Patient tolerating PO and pain controlled rx: flomax, Toradol 10mg and zofran? Disposition:? Discharge. Strict return precautions for infected stone or PO intolerance discussed. Quality Measures none Orders Category Date Time Status CT abdomen pelvis wo con Stat Exams 05/19/24 02:47 Taken CBC Stat Lab 05/19/24 02:10 Completed CMP [Comprehensive Metabolic Panel] Stat Lab 05/19/24 02:10 Completed Lipase Stat Lab 05/19/24 02:10 Completed UA [Urinalysis] Stat Lab 05/19/24 03:30 Completed Ketorolac Inj [Toradol Inj] Med 05/19/24 01:48 Discontinued 30 mg IM X1 ONE Ondansetron Odt [Zofran Odt] Med 05/19/24 02:47 Discontinued 4 mg PO X1 ONE Reevaluation(s) Reevaluation #1: pain has improved and more comfortable Vital Signs Vital signs: Vital Signs Temperature 98.1 F 05/19/24 01:38 Pulse Rate 75 05/19/24 01:38 Respiratory Rate 97 H 05/19/24 01:38 Blood Pressure 152/103 H 05/19/24 01:38 Pulse Oximetry (%) 97 05/19/24 01:38 Oxygen Delivery Method Room Air 05/19/24 01:38 Abdominal Pain MDM Patient data External records reviewed:: [facility] previous records Clinical information provided by:: patient Social determinants that could affect healthcare access:: none Patient has the following chronic illnesses:: kidney stone How is presenting disease/condition affected by chronic disease/condition?: exa cerbated by Evaluation data The following diagnostics were reviewed and interpreted by me:: lab results and radiology exam(s) Lab and/or radiology exams considered but not ordered:: n/a Interpretation Summary: cbc/cmp wnl urine ct: right uvj stone with hydroureteronephrosis Medications / Prescriptions Medications or Prescriptions considered but not ordered:: n/a Medication administrations:: Medication Administration History Discontinued Medications Ketorolac Tromethamine (Ketorolac Inj 60 Mg/2 Ml Vial) 30 mg IM X1 ONE Stop: 05/19/24 01:49 Last Admin: 05/19/24 02:16 Dose: 30 mg Documented By: ELLEN Ondansetron HCl (Ondansetron Odt 4 Mg Tabrap) 4 mg PO X1 ONE; Protocol Stop: 05/19/24 02:48 Last Admin: 05/19/24 03:23 Dose: 4 mg Documented By: RIKA as stated above Consultations Consultation(s) initiated? (list below): No Diagnosis Differential diagnosis abdominal pain: abdominal pain, calculus of kidney, constipation, diverticulitis, gastroenteritis, pancreatitis and small bowel obstruction Most likely diagnosis given after review of the tests above:: uvj stone Admission Indicated Admission indicated?: not indicated Admission Request Was there a request for admission?: No Disposition Plan Disposition Plan: Discharge Discharge Attestation Discharge Attestation: The patient and all family members were given an opportunity to ask questions and understood the discharge instructions. Discharge instructions specifically effects, indications for sooner follow up or return to the emergency department, and the expected course of current diagnosis. Patient condition: Stable Discharge Plan Plan Patient Disposition: HOME (Self Care) Prescriptions/Referrals Prescriptions/Med Rec: New ondansetron 4 mg tablet,disintegrating 4 mg PO Q8H PRN (Reason: nausea and vomiting) Qty: 20 0RF tamsulosin [Flomax] 0.4 mg capsule 0.4 mg PO QDAY Qty: 30 0RF ketorolac 10 mg tablet 10 mg PO Q8H PRN (Reason: pain) Qty: 20 0RF Rx Instructions: maximum total duration of 5 days from all oral, intranasal, or parenteral formulations No Action ibuprofen 800 mg tablet 800 mg PO Q8H PRN (Reason: pain) Qty: 30 0RF ibuprofen [IBU] 800 mg tablet 800 mg PO Q8H Qty: 20 0RF ondansetron 4 mg tablet,disintegrating 4 mg PO Q6H PRN (Reason: nausea and vomiting) Qty: 14 0RF hydrocodone-acetaminophen 5-325 mg tablet 1 tab PO .q4-6 MDD 6 tabs PRN (Reason: pain) Qty: 14 0RF tamsulosin [Flomax] 0.4 mg capsule 0.4 mg PO QDAY Qty: 7 0RF tamsulosin [Flomax] 0.4 mg capsule 0.4 mg PO QDAY Qty: 30 0RF ondansetron 4 mg tablet,disintegrating 4 mg PO Q8H PRN (Reason: nausea and vomiting) Qty: 14 0RF acetaminophen [Tylenol] 325 mg tablet 325 mg PO QID PRN (Reason: pain) Qty: 30 0RF Referrals: Lam Brewer MD [Primary Care Provider] - In 1 week Problem List Clinical Impression: Calculus of ureterovesical junction (UVJ) Patient/Caregiver Discharge Instructions Education Materials: Treating Kidney Stones ... Print Language: Venezuelan Stand Alone Forms: Marina Award Info., Patient Portal Info Letter
[2024-05-19 04:38] VITALS: BP 142/85; PULSE 87; RESP 18; TEMP 36.6; O2SAT 98
== END 2024-05-19 04:39 | disposition home or self-care (01) ==
PROVIDERS: Physician Assistant; Emergency Provider Emergency Medicine; PCP Family Medicine
DX: N13.2 Hydronephrosis with renal and ureteral calculous obstruction (principal); Z87.442 Personal history of urinary calculi
CPT/HCPCS: 36415; 74176; 80053; 81001; 83690; 85025; 96372; 99284; J1885; Q0162

== ENCOUNTER 2024-05-19 10:44 | Emergency (ER) | payer MEDICAID, SELFPAY ==
[2024-05-19 10:45] VITALS: BMI 39.9
[2024-05-19 10:54] VITALS: BP 154/104; PULSE 74; RESP 18; TEMP 36.6; O2SAT 97
--- NOTE | 2024-05-19 11:08 | PD.EDADULT ---
ED General RME/HPI General Chief complaint: General Adult/Misc Complain Stated complaint: R) FLANK PAIN FROM KIDNEY STONE Time Seen by Provider: 05/19/24 10:57 Arrival date/time: 05/19/24 10:44 This is a 23-year-old male that comes in with complaints of right flank pain. Patient was just discharged earlier today around 2 AM with the same symptoms. Patient states he does not like having to take [place] at home. Patient states that soon as he got discharged to try to go home and go to sleep and he was able to sleep for a little bit but then got the pain again. Related Data Previous Rx's ?Medication ?Instructions ?Recorded ibuprofen 800 mg tablet 800 mg PO Q8H PRN pain #30 tabs 10/24/20 ibuprofen 800 mg tablet (IBU) 800 mg PO Q8H #20 tabs 02/22/24 hydrocodone 5 mg-acetaminophen 325 1 tab PO .q4-6 PRN pain #14 tabs 04/08/24 mg tablet ondansetron 4 mg disintegrating 4 mg PO Q6H PRN nausea and 04/08/24 tablet vomiting #14 tabs tamsulosin 0.4 mg capsule (Flomax) 0.4 mg PO QDAY #7 caps 04/08/24 acetaminophen 325 mg tablet 325 mg PO QID PRN pain #30 tabs 05/12/24 (Tylenol) ondansetron 4 mg disintegrating 4 mg PO Q8H PRN nausea and 05/12/24 tablet vomiting #14 tabs tamsulosin 0.4 mg capsule (Flomax) 0.4 mg PO QDAY #30 caps 05/12/24 ketorolac 10 mg tablet 10 mg PO Q8H PRN pain #20 tabs 05/19/24 metoclopramide HCl 10 mg tablet 10 mg PO Q6H PRN nausea and 05/19/24 (Reglan) vomiting #14 tabs ondansetron 4 mg disintegrating 4 mg PO Q8H PRN nausea and 05/19/24 tablet vomiting #20 tabs tamsulosin 0.4 mg capsule (Flomax) 0.4 mg PO QDAY #30 caps 05/19/24 Allergies Allergy/AdvReac Type Severity Reaction Status Date / Time No Known Allergies Allergy Verified 05/19/24 10:47 Review of Systems Review of Systems Systems Reviewed: All systems reviewed, normal except as documented Past Medical History Past Medical History NEUROLOGIC: Negative Neurological Disorders or Seizures CARDIAC: Positive Hypercholesterolemia; Negative Cardiac Disorders or Congestive Heart Failure RESPIRATORY: Positive Asthma; Negative Chronic Obstructive Pulmonary Disease (COPD) GASTROINTESTINAL: Positive Gastrointestinal Disorders, Gastroesophageal Reflux Disease and Obesity; Negative Hepatitis GENITOURINARY: Positive Kidney Stones; Negative Genitourinary Disorders or Renal Disease MUSCULOSKELETAL: Positive Fractures (right leg); Negative Musculoskeletal Disorders ENDOCRINE: Negative Endocrine Disorders, Diabetes Mellitus Type 1 or Diabetes Mellitus Type 2 HEMATOLOGIC: Negative Blood Disorders, Leukemia or Sickle Cell Disease OTHER HISTORY: Positive Hospitalization; Negative Autoimmune Disease, Shingles, Falls, Blood Transfusions, Blood Transfusion Reaction, Anesthesia Reactions, Chemotherapy, Radiation Therapy, Chicken Pox, Measles, Mumps or Cancer Family History FAMILY HISTORY: Positive Family Respiratory Disorders and Family Surgery; Negative Family Psychiatric Problems, Family Cardiac Disorders, Family Gastrointestinal Problems, Family Cancer or Family Anesthesia Reaction Social History SMOKING STATUS: Current some day smoker SUBSTANCE USE: does not use ED Exam General General appearance: Present alert and in no apparent distress Head Head exam: Present atraumatic Eye Eye exam: Present normal appearance, PERRL and EOMI ENT ENT exam: Present normal exam, normal oropharynx and mucous membranes moist Neck Neck exam: Present normal inspection, full ROM and trachea midline Chest Chest inspection: Present normal inspection and symmetric chest wall rise Respiratory Respiratory exam: Present normal lung sounds bilaterally Cardiovascular Cardiovascular exam: Present regular rate, normal rhythm and normal heart sounds Abdominal Exam Abdominal exam: Present soft Extremities Exam Extremities exam: Present normal inspection and full ROM Back Exam Back exam: Present normal inspection and full ROM Neurological Exam Neurological exam: Present alert, oriented X3 and CN II-XII intact Psychiatric Psychiatric exam: Present normal affect and normal mood Skin Skin exam: Present warm, dry, intact and normal color Course Quality Measures none Orders Category Date Time Status Ketorolac Inj [Toradol Inj] Med 05/19/24 11:07 Discontinued 30 mg IM X1 ONE Metoclopramide Inj [Reglan Inj] Med 05/19/24 11:07 Discontinued 10 mg IM X1 ONE Metoclopramide Inj [Reglan Inj] Med 05/19/24 13:04 Discontinued 10 mg IM X1 ONE Morphine Inj Med 05/19/24 11:07 Discontinued 5 mg IM X1 ONE Vital Signs Vital signs: Vital Signs Temperature 97.8 F 05/19/24 10:54 Pulse Rate 74 05/19/24 10:54 Respiratory Rate 18 05/19/24 10:54 Blood Pressure 154/104 H 05/19/24 10:54 Pulse Oximetry (%) 97 05/19/24 10:54 Oxygen Delivery Method Room Air 05/19/24 10:54 Discharge Plan Plan Patient Disposition: HOME (Self Care) Patient condition on transfer: Stable Prescriptions/Referrals Prescriptions/Med Rec: New metoclopramide HCl [Reglan] 10 mg tablet 10 mg PO Q6H PRN (Reason: nausea and vomiting) Qty: 14 0RF No Action ibuprofen 800 mg tablet 800 mg PO Q8H PRN (Reason: pain) Qty: 30 0RF ibuprofen [IBU] 800 mg tablet 800 mg PO Q8H Qty: 20 0RF ondansetron 4 mg tablet,disintegrating 4 mg PO Q6H PRN (Reason: nausea and vomiting) Qty: 14 0RF hydrocodone-acetaminophen 5-325 mg tablet 1 tab PO .q4-6 MDD 6 tabs PRN (Reason: pain) Qty: 14 0RF ondansetron 4 mg tablet,disintegrating 4 mg PO Q8H PRN (Reason: nausea and vomiting) Qty: 20 0RF tamsulosin [Flomax] 0.4 mg capsule 0.4 mg PO QDAY Qty: 30 0RF ketorolac 10 mg tablet 10 mg PO Q8H PRN (Reason: pain) Qty: 20 0RF Rx Instructions: maximum total duration of 5 days from all oral, intranasal, or parenteral formulations tamsulosin [Flomax] 0.4 mg capsule 0.4 mg PO QDAY Qty: 7 0RF tamsulosin [Flomax] 0.4 mg capsule 0.4 mg PO QDAY Qty: 30 0RF ondansetron 4 mg tablet,disintegrating 4 mg PO Q8H PRN (Reason: nausea and vomiting) Qty: 14 0RF acetaminophen [Tylenol] 325 mg tablet 325 mg PO QID PRN (Reason: pain) Qty: 30 0RF Referrals: Lam Brewer MD [Primary Care Provider] - In 1 week Problem List Clinical Impression: Calculus of ureterovesical junction (UVJ), Flank pain Patient/Caregiver Discharge Instructions Discharge Activity: activity as tolerated Education Materials: ED Kidney Stone w/ Colic Additional Instructions: Follow up with primary provider in 1-2 days. Come back to ED if symptoms change or worsen Print Language: Vietnamese Stand Alone Forms: Marina Award Info., Patient Portal Info Letter PA/WEB ART DIRECTOR Supervising Physician PA/WEB ART DIRECTOR Supervising Physician: debbi
[2024-05-19] MEDS: MORPHINE SULF INJ 10 MG/ML VIAL 5 MG IM (11:31)
[2024-05-19] MEDS: KETOROLAC INJ 60 MG/2 ML VIAL 30 MG IM (11:33)
[2024-05-19] MEDS: METOCLOPRAMIDE INJ 5 MG/ML VIAL 2 ML 10 MG IM ×2 (11:35→13:21)
== END 2024-05-19 14:17 | disposition home or self-care (01) ==
PROVIDERS: Emergency Provider Emergency Medicine; PCP Family Medicine
DX: N20.1 Calculus of ureter (principal)
CPT/HCPCS: 96372; 99284; J1885; J2270; J2765

== ENCOUNTER → 2024-05-30 | Outpatient (CLI) | payer MEDICAID, SELFPAY ==
--- NOTE | 2024-05-30 | XR_ITS ---
Examination: Abdomen AP single view Technique: AP portable supine abdomen, single view Exam date and time: May 30, 2024 1249 hours INDICATIONS: Flank pain today FINDINGS: No renal or ureteral calculi, no hydronephrosis No free air Nonobstructive bowel gas pattern IMPRESSION: No renal or ureteral calculi
== END | disposition home or self-care (01) ==
LOC: CDIM 11:41
PROVIDERS: PCP Family Medicine; Referring Provider Surgery; Visit Provider Surgery
DX: R10.9 Unspecified abdominal pain (principal)
CPT/HCPCS: 74018

== ENCOUNTER 2024-07-07 12:42 | Emergency (ER) | payer MEDICAID, SELFPAY ==
[2024-07-07 12:47] VITALS: BMI 36.0
[2024-07-07 13:05] VITALS: BP 149/88; PULSE 74; RESP 18; TEMP 36.8; O2SAT 97
--- NOTE | 2024-07-07 13:37 | EDNOTE_ITS ---
Lower Extremity Injury RME/HPI General Chief Complaint: Extremity Injury, Lower Stated Complaint: RIGHT LEG PAIN WITH SWELLING TO KNEE Time Seen by Provider: 07/07/24 13:03 Arrival date/time: 07/07/24 12:42 This is a 24 year male with complaints of on and off swelling along with chronic pain to right kneee and right thigh. 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 Pt seeing workers comp doctor and gets frequent follow up with them. Pt states they are not doing anything for him althought patient seeing a specialist in [place] for his leg. Patient scheduled for cortisone injections. Pt states it has been hard to work because eof pain. Patient just went back to work approx 1 month ago. Patient has no new symptoms. Pt c/o on and off tightness to left leg especially in thigh area. Denies new symptoms. Denies trauma Related Data Previous Rx's ?Medication ?Instructions ?Recorded ibuprofen 800 mg tablet 800 mg PO Q8H PRN pain #30 t abs 10/24/20 ibuprofen 800 mg tablet (IBU) 800 mg PO Q8H #20 tabs 0 02/22/24 hydrocodone 5 mg-acetaminophen 325 1 tab PO .q4-6 PRN pain #14 tabs 04/08/24 mg tablet ondansetron 4 mg disintegrating 4 mg PO Q6H PRN nausea and 04/08/24 tablet vomiting #14 tabs tamsulosin 0.4 mg capsule (Flomax) 0.4 mg PO QDAY #7 c aps 04/08/24 acetaminophen 325 mg tablet 325 mg PO QID PRN pain #30 tabs 05/12/24 (Tylenol) ondansetron 4 mg disintegrating 4 mg PO Q8H PRN nausea and 05/12/24 tablet vomiting #14 tabs tamsulosin 0.4 mg capsule (Flomax) 0.4 mg PO QDAY #30 caps 05/12/24 ketorolac 10 mg tablet 10 mg PO Q8H PRN pain #20 ta bs 05/19/24 metoclopramide HCl 10 mg tablet 10 mg PO Q6H PRN nause a and 05/19/24 (Reglan) vomiting #14 tabs ondansetron 4 mg disintegrating 4 mg PO Q8H PRN nausea and 05/19/24 tablet vomiting #20 tabs tamsulosin 0.4 mg capsule (Flomax) 0.4 mg PO QDAY #30 caps 05/19/24 cyclobenzaprine 10 mg tablet 10 mg PO HS PRN muscle sp asm #10 07/07/24 tabs ibuprofen 800 mg tablet 800 mg PO Q6H PRN pain #14 t abs 07/07/24 Allergies Allergy/AdvReac Type Severity Reaction Status Date / Time No Known Allergies Allergy Verified 07/07/24 12:50 Course Orders Category Date Time Status HYDROcodone*/APAP 5/325 [[place] 5/325] Med 07/07/24 13:42 Discontinued 1 tab PO X1 ONE Ibuprofen Tab [Motrin Tab] Med 07/07/24 13:42 Discontinued 800 mg PO X1 ONE Ondansetron Odt [Zofran Odt] Med 07/07/24 13:42 Discontinued 4 mg PO X1 ONE Vital Signs Vital signs: Vital Signs Temperature 98.3 F 07/07/24 13:05 Pulse Rate 74 07/07/24 13:05 Respiratory Rate 18 07/07/24 13:05 Blood Pressure 149/88 H 07/07/24 13:05 Pulse Oximetry (%) 97 07/07/24 13:05 Oxygen Delivery Method Room Air 07/07/24 13:05 Extremity Injury, Lower MDM Narrative MDM Narrative:: Spoke to patient at length. Patient having no new symptoms. All patient's complaints are chronic. Patient is seeing Worker's Comp. doctor on a regular basis. Patient is also being seen by specialist in [place] and he is currently scheduled for some injections of cortisone for chronic pain. Patient states that he just started going back to work but he feels like it is hard for him to keep up. I told him to follow-up with Worker's Comp. patient has had 2 [address] scans already in the past. Patient has no new injuries. Patient has no new complaints. Patient able to ambulate without assistance. Patient states that once he is on his feet for a couple hours his leg will get swollen but gets better once he sits down. Explained to patient the importance of keeping it easy. I also talked to him about elevating his leg and icing it after working. I explained the importance of following up with Worker's Comp. Patient verbalized understanding and is comfortable with plan of care. Will give patient something for pain today. Patient will have ibuprofen for pain. I also will give patient a muscle relaxant to see if this will help with the muscle tightness. Medications / Prescriptions Medication administrations:: Medication Administration History Discontinued Medications Hydrocodone Bitart/Acetaminophen (Hydrocodone/[place] 5/325 Tablet) 1 tab PO X1 ONE Stop: 07/07/24 13:43 Ibuprofen (Ibuprofen Tab 400 Mg Tablet) 800 mg PO X1 ONE Stop: 07/07/24 13:43 Ondansetron HCl (Ondansetron Odt 4 Mg Tabrap) 4 mg PO X1 ONE; Protocol Stop: 07/07/24 13:43 Discharge Plan Plan Patient Disposition: HOME (Self Care) Patient condition on transfer: Stable Prescriptions/Referrals Prescriptions/Med Rec: New ibuprofen 800 mg tablet 800 mg PO Q6H PRN (Reason: pain) Qty: 14 0RF cyclobenzaprine 10 mg tablet 10 mg PO HS PRN (Reason: muscle spasm) Qty: 10 0RF No Action ibuprofen 800 mg tablet 800 mg PO Q8H PRN (Reason: pain) Qty: 30 0RF ibuprofen [IBU] 800 mg tablet 800 mg PO Q8H Qty: 20 0RF ondansetron 4 mg tablet,disintegrating 4 mg PO Q6H PRN (Reason: nausea and vomiting) Qty: 14 0RF hydrocodone-acetaminophen 5-325 mg tablet 1 tab PO .q4-6 MDD 6 tabs PRN (Reason: pain) Qty: 14 0RF ondansetron 4 mg tablet,disintegrating 4 mg PO Q8H PRN (Reason: nausea and vomiting) Qty: 20 0RF tamsulosin [Flomax] 0.4 mg capsule 0.4 mg PO QDAY Qty: 30 0RF ketorolac 10 mg tablet 10 mg PO Q8H PRN (Reason: pain) Qty: 20 0RF Rx Instructions: maximum total duration of 5 days from all oral, intranasal, or parenteral for mulations metoclopramide HCl [Reglan] 10 mg tablet 10 mg PO Q6H PRN (Reason: nausea and vomiting) Qty: 14 0RF tamsulosin [Flomax] 0.4 mg capsule 0.4 mg PO QDAY Qty: 7 0RF tamsulosin [Flomax] 0.4 mg capsule 0.4 mg PO QDAY Qty: 30 0RF ondansetron 4 mg tablet,disintegrating 4 mg PO Q8H PRN (Reason: nausea and vomiting) Qty: 14 0RF acetaminophen [Tylenol] 325 mg tablet 325 mg PO QID PRN (Reason: pain) Qty: 30 0RF Problem List Clinical Impression: Chronic pain of right lower extremity Patient/Caregiver Discharge Instructions Discharge Activity: activity as tolerated Education Materials: Managing Chronic Pain, ED RICE Additional Instructions: Follow up with primary provider in 1-2 days. Come back to ED if symptoms change or worsen. Follow-up with Worker's Comp doctor's Print Language: Nepali Stand Alone Forms: Marina Award Info., Patient Portal Info Letter PA/AUTOMOBILE TIRE BUILDER Supervising Physician MINH/AUTOMOBILE TIRE BUILDER Supervising Physician: roseline
[2024-07-07] MEDS: IBUPROFEN TAB 400 MG TABLET 800 MG PO (14:09)
[2024-07-07] MEDS: ONDANSETRON ODT 4 MG TABRAP PO (14:10)
== END 2024-07-07 14:28 | disposition home or self-care (01) ==
LOC: SERX 14:03
PROVIDERS: Emergency Provider Emergency Medicine; PCP Family Medicine
DX: M79.604 Pain in right leg (principal); G89.29 Other chronic pain
CPT/HCPCS: 99282; Q0162; A9270